=== PATIENT | male | born 1940 | race Caucasian/White ===

== ENCOUNTER 2019-04-22 11:40 | Inpatient (IN) | payer MEDICARE, OTHER ==
[2019-04-22] VITALS (17 sets, daily range): BP systolic 124–148; BP diastolic 68–83
[~2019-04-22] VITALS: Ht 177.8 cm; Wt 84.1 kg
[~2019-04-22 11:40] MED LIST: ALBU6.7H3 IH; ASPI-1265 PO; ATRIN IH; OMEG1CAP PO
[2019-04-22] MEDS: heparin 25,000 UNIT/250ml bag 250 ML IV SCH ×2 (11:53→13:30)
--- NOTE | 2019-04-22 11:54 | NUR ---
EKG DONE, CXR DONE, CUPOLA REPAIRER HAS BEEN NOTIFIED
[2019-04-22] MEDS ORDERED: heparin 10,000 units/1 ML INJ IV ONE (11:55)
[2019-04-22] MEDS ORDERED: heparin, porcine 5000 units/ml vial SQ SCH (11:55)
[2019-04-22] MEDS ORDERED: morphine 4 MG/ML inj SYRINge IV ONE (12:00)
[2019-04-22 12:04] LABS: BASOPHILS # (AUTO) 0.1 X10'3 (0-0.2); BASOPHILS % (AUTO) 1.3 % (0-1); EOSINOPHILS # (AUTO) 0.5 X10'3 (0-0.9); EOSINOPHILS % (AUTO) 4.9 % (0-6); HEMATOCRIT 43.7 % (42.0-52.0); HEMOGLOBIN 15.1 g/dl (14.0-17.9); LYMPHOCYTES # (AUTO) 3.3 X10'3 (1.1-4.8); LYMPHOCYTES % (AUTO) 30.4 % (21-51); MEAN CORPUSCULAR HEMOGLOBIN 31.1 PG (27.0-31.0); MEAN CORPUSCULAR HGB CONC 34.5 g/dL (33.0-36.5); MEAN CORPUSCULAR VOLUME 90.1 FL (78-98); MONOCYTES % (AUTO) 9.2 % (2-12); NEUTROPHILS % (AUTO) 54.2 % (42-75); PLATELET COUNT 247 X10'3 (140-440); RED BLOOD COUNT 4.84 X10'6 (4.70-6.10); RED CELL DISTRIBUTION WIDTH 13.2 % (11.5-14.5)
[2019-04-22] MEDS ORDERED: heparin 10,000 units/1 ML INJ IV PRN (12:05)
[2019-04-22] MEDS ORDERED: iohexol 350 MG/ML 50ML vial IV ONE (12:09)
[2019-04-22] MEDS ORDERED: fentaNYL/PF 50MCG/1 ML 2ML syringe ONE (12:09)
[2019-04-22] MEDS ORDERED: heparin 1,000unit/ml 10ml vial 10 ML ONE (12:09)
[2019-04-22] MEDS ORDERED: LIDOcaine 1% (10mg/ml)w/preservative injection 20ml MDV ONE (12:09)
[2019-04-22] MEDS ORDERED: iohexol 350 MG/1 ML 200ml bottle ONE (12:09)
[2019-04-22] MEDS ORDERED: midazolam 2 mg/2 ml injection ONE (12:09)
[2019-04-22] MEDS ORDERED: nitroGLYCERIN-Tridil 50MG/D5W 250 ML IV ONE (12:09)
--- NOTE | 2019-04-22 12:11 | NUR ---
PT TO AUTOMATIC DEVELOPER VIA CURT WITH BRETT TECH
[2019-04-22] MEDS ORDERED: tirofiban 5mg in NS 100mL 100 ML IV ONE (12:13)
[2019-04-22 12:18] LABS: ALANINE AMINOTRANSFERASE 62 U/L (12-78); ALBUMIN 3.6 G/DL (3.4-5.0); ALBUMIN/GLOBULIN RATIO 0.9 (1.1-1.5); ANION GAP 9 (8-16); ASPARTATE AMINO TRANSFERASE 44 U/L (10-37); BILIRUBIN,TOTAL 0.5 MG/DL (0.1-1.0); BLOOD UREA NITROGEN 16 MG/DL (7-18); BUN/CREATININE RATIO 14.8 (5.4-32.0); CALCIUM 8.9 MG/DL (8.5-10.1); CHLORIDE 105 MMOL/L (99-107); CREATININE 1.08 MG/DL (0.60-1.10); GLUCOSE 151 MG/DL (70-104); POTASSIUM 3.9 MMOL/L (3.5-5.1); SODIUM 138 MMOL/L (135-145); TOTAL CARBON DIOXIDE 23.8 MMOL/L (24-32); TOTAL PROTEIN 7.8 G/DL (6.4-8.2); eGFR 66 ML/MIN
[2019-04-22 12:30] LABS: PARTIAL THROMBOPLASTIN TIME 28 SECONDS (22-32)
--- NOTE | 2019-04-22 12:30 | NUR ---
DR. BENSON TALKING WITH AND DAUGHTER
[2019-04-22 12:42] LABS: ALKALINE PHOSPHATASE 86 IU/L (46-116)
[2019-04-22] MEDS ORDERED: LIDOcaine 2% (20 mg/ml) 5ml cardiac syringe ONE (12:56)
[2019-04-22] MEDS ORDERED: iohexol 350MG/ML 100ml bottle IV ONE (13:03)
[2019-04-22] MEDS: LIDOcaine 2 gm/250ml D5W 250 ML IV SCH ×2 (13:10→13:30)
[2019-04-22] MEDS ORDERED: clopidogrel 300mg tablet ONE (13:21)
[2019-04-22] MEDS: normal saline 1000ml 1,000 ML IV SCH ×2 (13:30→14:15)
[2019-04-22] MEDS ORDERED: acetaminophen 325mg tablet PO PRN (14:20)
[2019-04-22] MEDS: aspirin 81mg tab.chew PO SCH (14:20)
[2019-04-22] MEDS ORDERED: magnesium hydroxide 30ml (MOM) UD suspension PO PRN (14:20)
[2019-04-22] MEDS ORDERED: OXAZEpam 15mg capsule PO PRN (14:20)
[2019-04-22] MEDS ORDERED: nitroGLYCERIN 0.4mg SUBLingual tab SL PRN (14:20)
[2019-04-22] MEDS ORDERED: proCHLORperazine 10 MG/2 ml inj IV PRN (14:20)
[2019-04-22] MEDS ORDERED: HYDROcodone/acetaminophen 10/325mg tab PO PRN (14:20)
[2019-04-22] MEDS ORDERED: cyclobenzaprine 10mg tablet PO PRN (14:20)
[2019-04-22] MEDS ORDERED: morphine 10mg/ml inj. IV PRN (14:25)
[2019-04-22] MEDS ORDERED: morphine 4 MG/ML inj SYRINge IV PRN (14:25)
--- NOTE | 2019-04-22 14:30 | NUR ---
Patient arrived to floor from film laboratory technician and placed on monitor; vital signs stable. Upon physical assessment, oozing noted at groin site draining beneath the legs. Dressing removed and small hematoma noted. Manual pressure applied and hematoma size decreased. Pressure dressing placed. Dr. Medina at bedside and aware; does not have any concerns about oozing at this time. Patient oriented to room with call light in reach.
[2019-04-22] MEDS ORDERED: BUDE10.2 INH (15:29)
[2019-04-22] MEDS ORDERED: BICA50TA7 PO (15:30)
[2019-04-22] MEDS ORDERED: tirofiban 12.5mg in NS 250mL 250 ML IV SCH (15:30)
--- NOTE | 2019-04-22 18:45 | NUR ---
Patient in room CICU 2006. I have received report from BELINDA Mckeon and had the opportunity to ask questions and assume patient care.
--- NOTE | 2019-04-22 18:48 | NUR ---
Problems reprioritized. Patient report given, questions answered & plan of care reviewed with Yvette TREVINO.
[2019-04-22] MEDS ORDERED: clopidogrel 300mg tablet PO SCH (19:00)
[2019-04-22] MEDS ORDERED: clopidogrel 300mg tablet PO ONE (19:00)
[2019-04-22] MEDS: docusate sod 100mg capsule PO SCH (20:52)
[2019-04-22] MEDS: metoprolol tartrate 12.5mg (1/2 tablet) PO SCH (20:52)
[2019-04-22] MEDS ORDERED: ondansetron/PF 4mg/2ml inj IV PRN (22:35)
[2019-04-23] VITALS (21 sets, daily range): BP systolic 99–141; BP diastolic 55–75
[2019-04-23] MEDS: HYDROcodone/acetaminophen 10/325mg tab PO PRN (00:10)
[2019-04-23] MEDS: albuterol 2.5 MG/3 ML nebule NEB SCH ×4 (02:53→19:26)
[2019-04-23 03:19] LABS: BASOPHILS % (AUTO) 0.2 % (0-1); EOSINOPHILS % (AUTO) 0.2 % (0-6); HEMATOCRIT 42.1 % (42.0-52.0); HEMOGLOBIN 14.3 g/dl (14.0-17.9); LYMPHOCYTES # (AUTO) 1.1 X10'3 (1.1-4.8); LYMPHOCYTES % (AUTO) 5.6 % (21-51); MEAN CORPUSCULAR HEMOGLOBIN 30.3 PG (27.0-31.0); MEAN CORPUSCULAR HGB CONC 33.9 g/dL (33.0-36.5); MEAN CORPUSCULAR VOLUME 89.4 FL (78-98); MEAN PLATELET VOLUME 8.6 FL (7.4-10.4); MONOCYTES % (AUTO) 5.3 % (2-12); NEUTROPHILS # (AUTO) 17.3 X10'3 (1.8-7.7); NEUTROPHILS % (AUTO) 88.7 % (42-75); PLATELET COUNT 250 X10'3 (140-440); RED BLOOD COUNT 4.71 X10'6 (4.70-6.10); RED CELL DISTRIBUTION WIDTH 13.2 % (11.5-14.5); WHITE BLOOD COUNT 19.5 X10'3 (4.5-11.0)
[2019-04-23 03:33] LABS: ALANINE AMINOTRANSFERASE 71 U/L (12-78); ALBUMIN 3.4 G/DL (3.4-5.0); ALBUMIN/GLOBULIN RATIO 0.8 (1.1-1.5); ALKALINE PHOSPHATASE 84 IU/L (46-116); ANION GAP 8 (8-16); ASPARTATE AMINO TRANSFERASE 77 U/L (10-37); BILIRUBIN,TOTAL 0.6 MG/DL (0.1-1.0); BLOOD UREA NITROGEN 23 MG/DL (7-18); BUN/CREATININE RATIO 20.4 (5.4-32.0); CALCIUM 8.8 MG/DL (8.5-10.1); CHLORIDE 105 MMOL/L (99-107); CREATININE 1.13 MG/DL (0.60-1.10); GLUCOSE 159 MG/DL (70-104); POTASSIUM 4.5 MMOL/L (3.5-5.1); SODIUM 137 MMOL/L (135-145); TOTAL CARBON DIOXIDE 23.6 MMOL/L (24-32); TOTAL PROTEIN 7.7 G/DL (6.4-8.2); eGFR 63 ML/MIN
--- NOTE | 2019-04-23 06:09 | NUR ---
Problems reprioritized. Patient report given, questions answered & plan of care reviewed with BELINDA Mckeon. Addendum: 04/23/19 at 0619 by Yvette Jones RN Report given to BELINDA Doty
--- NOTE | 2019-04-23 06:15 | NUR ---
Patient in room CICU 2006. I have received report from lpn private duty and had the opportunity to ask questions and assume patient care.
[2019-04-23] MEDS: budesonide 0.5mg/2ml UD nebule IH SCH ×2 (07:53→19:26)
[2019-04-23] MEDS: clopidogrel 75mg tablet PO SCH (07:56)
[2019-04-23] MEDS: docusate sod 100mg capsule PO SCH ×2 (07:56→20:51)
[2019-04-23] MEDS: aspirin 81mg tab.chew PO SCH (07:56)
[2019-04-23] MEDS: metoprolol tartrate 12.5mg (1/2 tablet) PO SCH ×2 (07:57→20:51)
[2019-04-23] MEDS: lisinopril 2.5mg tablet PO SCH (09:26)
[2019-04-23] MEDS: normal saline 1000ml 1,000 ML IV SCH (10:15)
[2019-04-23] MEDS ORDERED: NITR0.4T48 SL (11:03)
--- NOTE | 2019-04-23 18:30 | NUR ---
Patient in room CICU 2006. I have received report from Suha TREVINO and had the opportunity to ask questions and assume patient care.
--- NOTE | 2019-04-23 18:50 | NUR ---
Report given to Courtney TREVINO via Transfer Unit to unit SBAR. Pt Right groin site and pulses assessed, no complications noted. Pt to be transferred to room 3027a via wheelchair with Tele #[address] Pt on Room air, sinus rhythm.
[2019-04-23] MEDS ORDERED: calcium carbonate 500mg chew tablet PO PRN (19:05)
--- NOTE | 2019-04-23 19:34 | NUR ---
Pt now in bed 3027A, moved with his belongings. I introduced him to his Noc RN, Courtney. Upper side rails up and call light within reach. Pt oriented to call light procedure. Verbalized to Courtney TREVINO that pt is confused at times and can be impulsive. A bed alarm or tabs unit should be placed for safety. Pt given Tums for his gas pains.
[2019-04-24] MEDS: albuterol 2.5 MG/3 ML nebule NEB SCH ×4 (01:55→20:24)
[2019-04-24 03:00] VITALS: BP 109/53
[2019-04-24 05:26] LABS: BASOPHILS # (AUTO) 0.1 X10'3 (0-0.2); BASOPHILS % (AUTO) 0.5 % (0-1); EOSINOPHILS # (AUTO) 0.5 X10'3 (0-0.9); EOSINOPHILS % (AUTO) 4.2 % (0-6); HEMATOCRIT 34.8 % (42.0-52.0); LYMPHOCYTES # (AUTO) 2.3 X10'3 (1.1-4.8); LYMPHOCYTES % (AUTO) 17.7 % (21-51); MEAN CORPUSCULAR HEMOGLOBIN 31.1 PG (27.0-31.0); MEAN CORPUSCULAR HGB CONC 34.6 g/dL (33.0-36.5); MEAN CORPUSCULAR VOLUME 89.9 FL (78-98); MEAN PLATELET VOLUME 8.8 FL (7.4-10.4); MONOCYTES # (AUTO) 0.9 X10'3 (0-0.9); MONOCYTES % (AUTO) 6.9 % (2-12); NEUTROPHILS # (AUTO) 9.1 X10'3 (1.8-7.7); NEUTROPHILS % (AUTO) 70.7 % (42-75); PLATELET COUNT 176 X10'3 (140-440); RED BLOOD COUNT 3.87 X10'6 (4.70-6.10); RED CELL DISTRIBUTION WIDTH 13.2 % (11.5-14.5); WHITE BLOOD COUNT 12.8 X10'3 (4.5-11.0)
[2019-04-24 06:02] LABS: ANION GAP 8 (8-16); BLOOD UREA NITROGEN 24 MG/DL (7-18); BUN/CREATININE RATIO 23.3 (5.4-32.0); CALCIUM 8.6 MG/DL (8.5-10.1); CHLORIDE 106 MMOL/L (99-107); CREATININE 1.03 MG/DL (0.60-1.10); GLUCOSE 97 MG/DL (70-104); MAGNESIUM 1.8 MG/DL (1.5-2.4); SODIUM 139 MMOL/L (135-145); TOTAL CARBON DIOXIDE 25.1 MMOL/L (24-32); eGFR 70 ML/MIN
--- NOTE | 2019-04-24 06:05 | NUR ---
Patient in room PCU 3027. I have received report from Courtney and had the opportunity to ask questions and assume patient care.
[2019-04-24 06:30] VITALS: BP 120/83
[2019-04-24] MEDS: aspirin 81mg tab.chew PO SCH (07:42)
[2019-04-24] MEDS: clopidogrel 75mg tablet PO SCH (07:42)
[2019-04-24] MEDS: metoprolol tartrate 12.5mg (1/2 tablet) PO SCH ×2 (07:42→20:24)
[2019-04-24] MEDS: lisinopril 2.5mg tablet PO SCH (07:42)
[2019-04-24] MEDS: docusate sod 100mg capsule PO SCH ×2 (07:43→20:00)
[2019-04-24] MEDS: budesonide 0.5mg/2ml UD nebule IH SCH ×2 (08:43→20:24)
[2019-04-24 11:00] VITALS: BP 107/57
--- NOTE | 2019-04-24 13:18 | NUR ---
Notified Dr Sahu that pt does not have a code status. He stated he would take care of this.
--- NOTE | 2019-04-24 15:15 | NUR ---
Pt has been up ambulating around unit all day today. Right groin site CDI, no bleeding, no hematoma.
[2019-04-24 15:30] VITALS: BP 105/55
[2019-04-24 18:00] VITALS: BP 106/66
--- NOTE | 2019-04-24 18:21 | NUR ---
Problems reprioritized. Patient report given, questions answered & plan of care reviewed with nancy.
--- NOTE | 2019-04-24 18:37 | NUR ---
Patient in room PCU 3027. I have received report from Eva TREVINO and had the opportunity to ask questions and assume patient care.
[2019-04-24] MEDS: HYDROcodone/acetaminophen 10/325mg tab PO PRN (20:25)
[2019-04-24 22:00] VITALS: BP 108/60
[2019-04-25 02:00] VITALS: BP 116/65
[2019-04-25] MEDS: HYDROcodone/acetaminophen 10/325mg tab PO PRN (02:44)
[2019-04-25] MEDS: albuterol 2.5 MG/3 ML nebule NEB SCH ×2 (03:11→08:43)
[2019-04-25 05:25] LABS: BASOPHILS # (AUTO) 0.1 X10'3 (0-0.2); BASOPHILS % (AUTO) 0.6 % (0-1); EOSINOPHILS # (AUTO) 0.6 X10'3 (0-0.9); EOSINOPHILS % (AUTO) 5.7 % (0-6); HEMATOCRIT 33.8 % (42.0-52.0); HEMOGLOBIN 11.7 g/dl (14.0-17.9); LYMPHOCYTES % (AUTO) 18.2 % (21-51); MEAN CORPUSCULAR HEMOGLOBIN 31.1 PG (27.0-31.0); MEAN CORPUSCULAR HGB CONC 34.6 g/dL (33.0-36.5); MEAN PLATELET VOLUME 9.3 FL (7.4-10.4); MONOCYTES # (AUTO) 1.1 X10'3 (0-0.9); MONOCYTES % (AUTO) 9.8 % (2-12); NEUTROPHILS # (AUTO) 7.2 X10'3 (1.8-7.7); NEUTROPHILS % (AUTO) 65.7 % (42-75); PLATELET COUNT 171 X10'3 (140-440); RED BLOOD COUNT 3.76 X10'6 (4.70-6.10); RED CELL DISTRIBUTION WIDTH 13.3 % (11.5-14.5); WHITE BLOOD COUNT 10.9 X10'3 (4.5-11.0)
[2019-04-25 05:55] LABS: ALBUMIN 3.1 G/DL (3.4-5.0); ANION GAP 6 (8-16); BLOOD UREA NITROGEN 16 MG/DL (7-18); BUN/CREATININE RATIO 17.2 (5.4-32.0); CALCIUM 8.5 MG/DL (8.5-10.1); CHLORIDE 106 MMOL/L (99-107); CREATININE 0.93 MG/DL (0.60-1.10); GLUCOSE 97 MG/DL (70-104); MAGNESIUM 1.9 MG/DL (1.5-2.4); POTASSIUM 3.5 MMOL/L (3.5-5.1); SODIUM 139 MMOL/L (135-145); eGFR 79 ML/MIN
[2019-04-25 06:00] VITALS: BP 106/58
--- NOTE | 2019-04-25 06:52 | NUR ---
Patient in room PCU 3027. I have received report from BELINDA Espinoza and had the opportunity to ask questions and assume patient care. Pt is awake and alert. Will continue to monitor.
--- NOTE | 2019-04-25 06:52 | NUR ---
Problems reprioritized. Patient report given, questions answered & plan of care reviewed with Brandie RN.
[2019-04-25] MEDS: docusate sod 100mg capsule PO SCH (08:00)
[2019-04-25] MEDS: metoprolol tartrate 12.5mg (1/2 tablet) PO SCH (08:33)
[2019-04-25 08:34] VITALS: BP_SYST 106
[2019-04-25] MEDS: clopidogrel 75mg tablet PO SCH (08:34)
[2019-04-25] MEDS: aspirin 81mg tab.chew PO SCH (08:34)
[2019-04-25] MEDS: lisinopril 2.5mg tablet PO SCH (08:34)
[2019-04-25] MEDS: budesonide 0.5mg/2ml UD nebule IH SCH (08:43)
[2019-04-25] MEDS ORDERED: LISI2.5T2 PO (09:43)
[2019-04-25] MEDS ORDERED: CLOP75TA35 PO (09:43)
[2019-04-25] MEDS ORDERED: METO25TA6 PO (09:43)
--- NOTE | 2019-04-25 11:02 | NUR ---
Pt discharged. IV d/c'd, tele removed, all belongings sent home with pt. Pt walked down with son. Left in private vehicle to home.
== END 2019-04-25 11:02 | disposition home or self-care (01) | DRG 246 ==
LOC: ER 11:41 → CICU 2S 13:30 → PCU 3S 04-23 19:15
PROVIDERS: ADMIT Internal Medicine Cardiovascular Disease; ATTEND Family Medicine
PROC: 4A023N7 Measurement of Cardiac Sampling and Pressure, Left Heart, Percutaneous Approach (ICD-10-PCS; principal; 2019-04-22)
PROC: 027035Z Dilation of Coronary Artery, One Artery with Two Drug-eluting Intraluminal Devices, Percutaneous Approach (ICD-10-PCS; 2019-04-22)
PROC: B2111ZZ Fluoroscopy of Multiple Coronary Arteries using Low Osmolar Contrast (ICD-10-PCS; 2019-04-22)
PROC: B2151ZZ Fluoroscopy of Left Heart using Low Osmolar Contrast (ICD-10-PCS; 2019-04-22)
PROC: B2131ZZ Fluoroscopy of Multiple Coronary Artery Bypass Grafts using Low Osmolar Contrast (ICD-10-PCS; 2019-04-22)
PROC: B41F1ZZ Fluoroscopy of Right Lower Extremity Arteries using Low Osmolar Contrast (ICD-10-PCS; 2019-04-22)
DX: I21.09 ST elevation (STEMI) myocardial infarction involving other coronary artery of anterior wall (principal); I49.01 Ventricular fibrillation; F17.210 Nicotine dependence, cigarettes, uncomplicated; I10 Essential (primary) hypertension; I16.0 Hypertensive urgency; M19.90 Unspecified osteoarthritis, unspecified site; I25.10 Atherosclerotic heart disease of native coronary artery without angina pectoris; J44.9 Chronic obstructive pulmonary disease, unspecified; Z82.41 Family history of sudden cardiac death; Z85.46 Personal history of malignant neoplasm of prostate; Z88.8 Allergy status to other drugs, medicaments and biological substances; I25.2 Old myocardial infarction; Z90.79 Acquired absence of other genital organ(s); Z95.1 Presence of aortocoronary bypass graft; Z80.9 Family history of malignant neoplasm, unspecified; Z81.1 Family history of alcohol abuse and dependence; Z79.899 Other long term (current) drug therapy; Z79.82 Long term (current) use of aspirin; Z71.6 Tobacco abuse counseling
CPT/HCPCS: 93459; 96374; 99291; C9606; 36415; 71045; 80048; 80053; 83735; 84484; 85025; 85610; 85730; 87081; 93005; 94640; 94760; 99152; 99153; A6258; C1725; C1769; C1874; G0378; J0780; J1644; J2001; J2250; J2270; J3010; J3246; J3490; J7040; J7626; Q9967

== ENCOUNTER 2021-06-07 08:17 | Day surgery (SDC) | payer MEDICARE, OTHER ==
[2021-06-05 12:05] LABS: BASOPHILS # (AUTO) 0.1 X10'3 (0-0.2); BASOPHILS % (AUTO) 1.1 % (0-1); EOSINOPHILS # (AUTO) 0.4 X10'3 (0-0.9); EOSINOPHILS % (AUTO) 4.9 % (0-6); HEMATOCRIT 40.3 % (42.0-52.0); HEMOGLOBIN 13.9 g/dl (14.0-17.9); LYMPHOCYTES # (AUTO) 1.4 X10'3 (1.1-4.8); LYMPHOCYTES % (AUTO) 17.6 % (21-51); MEAN CORPUSCULAR HEMOGLOBIN 32.5 PG (27.0-31.0); MEAN CORPUSCULAR HGB CONC 34.6 g/dL (33.0-36.5); MEAN CORPUSCULAR VOLUME 93.9 FL (78-98); MEAN PLATELET VOLUME 9.3 FL (7.4-10.4); MONOCYTES # (AUTO) 0.8 X10'3 (0-0.9); MONOCYTES % (AUTO) 10.3 % (2-12); NEUTROPHILS # (AUTO) 5.4 X10'3 (1.8-7.7); NEUTROPHILS % (AUTO) 66.1 % (42-75); PLATELET COUNT 236 X10'3 (140-440); RED BLOOD COUNT 4.29 X10'6 (4.70-6.10); RED CELL DISTRIBUTION WIDTH 14.3 % (11.5-14.5); WHITE BLOOD COUNT 8.1 X10'3 (4.5-11.0)
[2021-06-05 12:18] LABS: PARTIAL THROMBOPLASTIN TIME 27 SECONDS (22-32)
[2021-06-05 12:21] LABS: ALANINE AMINOTRANSFERASE 21 U/L (12-78); ALBUMIN 3.5 G/DL (3.4-5.0); ALBUMIN/GLOBULIN RATIO 0.9 (1.1-1.5); ALKALINE PHOSPHATASE 110 IU/L (46-116); ANION GAP 11 (8-16); ASPARTATE AMINO TRANSFERASE 18 U/L (10-37); BILIRUBIN,TOTAL 0.6 MG/DL (0.1-1.0); BLOOD UREA NITROGEN 12 MG/DL (7-18); BUN/CREATININE RATIO 10.3 (5.4-32.0); CHLORIDE 103 MMOL/L (99-107); CREATININE 1.17 MG/DL (0.60-1.10); GLUCOSE 86 MG/DL (70-104); SODIUM 140 MMOL/L (135-145); TOTAL CARBON DIOXIDE 26.5 MMOL/L (24-32); TOTAL PROTEIN 7.6 G/DL (6.4-8.2); eGFR 60 ML/MIN
[~2021-06-07] VITALS: Ht 175.3 cm; Wt 70.5 kg
[2021-06-07] VITALS (12 sets, daily range): BP systolic 123–170; BP diastolic 64–89
[~2021-06-07 08:17] MED LIST changes: -ALBU6.7H3 IH; -ATRIN IH; +BICA50TA7 PO; +BUDE10.2 INH; +CLOP75TA34 PO; +LISI2.5T14 PO; +LOP25T PO; +NITR0.4T48 SL; -OMEG1CAP PO
[2021-06-07] MEDS ORDERED: diphenhydrAMINE 25mg capsule PO PRN (08:40)
[2021-06-07] MEDS ORDERED: normal saline 1,000 ML IV SCH (08:40)
[2021-06-07] MEDS ORDERED: LORazepam 0.5 MG tablet PO PRN (08:40)
[2021-06-07] MEDS ORDERED: nitroGLYCERIN 0.4mg SUBLingual tab SL PRN (08:40)
[2021-06-07] MEDS ORDERED: CLOP75TA15 PO (09:23)
[2021-06-07] MEDS ORDERED: FLUT1BLS4 IH (09:23)
[2021-06-07] MEDS ORDERED: CHOL500050 PO (09:23)
[2021-06-07] MEDS ORDERED: METO-395 PO (09:23)
[2021-06-07] MEDS ORDERED: LISI20TA28 PO (09:23)
[2021-06-07] MEDS ORDERED: NITR0.4T51 SL (09:23)
[2021-06-07] MEDS ORDERED: ENZA40CA PO (09:23)
[2021-06-07] MEDS ORDERED: midazolam 1 mg/ML 2ml injection ONE (10:09)
[2021-06-07] MEDS ORDERED: LIDOcaine 1% (10mg/ml)w/preservative injection 20ml MDV ONE (10:10)
[2021-06-07] MEDS ORDERED: iohexol 350 MG/ML 50ML vial IV ONE ×2 (10:10→10:43)
[2021-06-07] MEDS ORDERED: fentaNYL/PF 50MCG/1 ML 2ML syringe ONE (10:10)
[2021-06-07] MEDS ORDERED: iohexol 350MG/ML 100ml bottle IV ONE ×2 (10:10→10:57)
[2021-06-07] MEDS ORDERED: nitroGLYCERIN-Tridil 50MG/D5W 250 ML IV ONE (11:16)
[2021-06-07] MEDS ORDERED: hydrALAZINE 20mg/ml inj. IV ONE (11:17)
[2021-06-07] MEDS ORDERED: proCHLORperazine 10 MG/2 ml inj IV PRN (12:15)
[2021-06-07] MEDS ORDERED: normal saline 1000ml 1,000 ML IV SCH (12:15)
[2021-06-07] MEDS ORDERED: HYDROcodone/acetaminophen 10/325mg tab PO PRN (12:15)
[2021-06-07] MEDS ORDERED: ondansetron/PF 4mg/2ml inj IV PRN (12:15)
[2021-06-07] MEDS ORDERED: OXAZEpam 15mg capsule PO PRN (12:15)
[2021-06-07] MEDS ORDERED: HYDROcodone/acetaminophen 5mg/325mg tablet PO PRN (12:15)
[2021-06-08 15:02] LABS: PSA, FREE <0.01 ng/mL
== END 2021-06-07 18:05 | disposition home or self-care (01) ==
LOC: SSTAY O 08:17
PROVIDERS: ATTEND Internal Medicine Cardiovascular Disease
DX: R94.39 Abnormal result of other cardiovascular function study (principal); I25.719 Atherosclerosis of autologous vein coronary artery bypass graft(s) with unspecified angina pectoris; E11.9 Type 2 diabetes mellitus without complications; I10 Essential (primary) hypertension; J44.9 Chronic obstructive pulmonary disease, unspecified; M19.90 Unspecified osteoarthritis, unspecified site; F17.210 Nicotine dependence, cigarettes, uncomplicated; K21.9 Gastro-esophageal reflux disease without esophagitis; E78.5 Hyperlipidemia, unspecified; I25.2 Old myocardial infarction; Z98.890 Other specified postprocedural states; Z79.01 Long term (current) use of anticoagulants; Z79.899 Other long term (current) drug therapy; Z95.1 Presence of aortocoronary bypass graft; Z88.8 Allergy status to other drugs, medicaments and biological substances; Z85.46 Personal history of malignant neoplasm of prostate
CPT/HCPCS: 36415; 71046; 80053; 84153; 84154; 85025; 85610; 85730; 93005; 93459; 99152; 99153; C1760; C1769; J0360; J1644; J2001; J2250; J3010; J7030; Q0163; Q9967; 75625; A4620; A6258; J3490

== ENCOUNTER 2021-07-11 07:31 | Inpatient (IN) | payer MEDICARE, OTHER ==
[2021-07-05 14:38] LABS: BASOPHILS # (AUTO) 0.1 X10'3 (0-0.2); EOSINOPHILS # (AUTO) 0.7 X10'3 (0-0.9); EOSINOPHILS % (AUTO) 9.2 % (0-6); LYMPHOCYTES # (AUTO) 1.6 X10'3 (1.1-4.8); LYMPHOCYTES % (AUTO) 19.8 % (21-51); MEAN CORPUSCULAR HEMOGLOBIN 32.1 PG (27.0-31.0); MEAN CORPUSCULAR HGB CONC 34.9 g/dL (33.0-36.5); MEAN PLATELET VOLUME 8.8 FL (7.4-10.4); MONOCYTES # (AUTO) 0.7 X10'3 (0-0.9); MONOCYTES % (AUTO) 8.4 % (2-12); NEUTROPHILS # (AUTO) 4.8 X10'3 (1.8-7.7); NEUTROPHILS % (AUTO) 61.6 % (42-75); PRE OP PLATELET COUNT 244 X10'3 (140-440); RED BLOOD COUNT 4.35 X10'6 (4.70-6.10); RED CELL DISTRIBUTION WIDTH 13.6 % (11.5-14.5)
[2021-07-05 14:50] LABS: CLARITY,URINE CLEAR (Clear); COLOR,URINE YELLOW (Yellow); GLUCOSE, URINE NEGATIVE (Neg); KETONES,URINE NEGATIVE (Neg); LEUKOCYTE ESTERASE ,URINE NEGATIVE (Neg); NITRITES, URINE NEGATIVE (Neg); OCCULT BLOOD,URINE NEGATIVE (Neg); PROTEIN,URINE NEGATIVE (Neg); UA COLLECTION TYPE CLN CATCH MIDSTREAM; UROBILINOGEN,URINE 0.2 E.U/dL (0.2-1.0)
[2021-07-05 14:55] LABS: ALBUMIN 3.5 G/DL (3.4-5.0); ALBUMIN/GLOBULIN RATIO 0.8 (1.1-1.5); ALKALINE PHOSPHATASE 120 IU/L (46-116); BLOOD UREA NITROGEN 10 MG/DL (7-18); BUN/CREATININE RATIO 8.9 (5.4-32.0); CALCIUM 8.9 MG/DL (8.5-10.1); CHLORIDE 101 MMOL/L (99-107); CREATININE 1.12 MG/DL (0.60-1.10); HEMOGLOBIN A1C 5.1 % (4.5-6.2); PRE OP ANION GAP 11 (8-16); PRE OP AST 53 U/L (10-37); PRE OP BILIRUB, TOTAL 0.4 MG/DL (0.0-1.0); PRE OP GLUCOSE 97 MG/DL (70-104); PRE OP POTASSIUM 3.9 MMOL/L (3.4-5.1); PRE OP SODIUM 137 MMOL/L (135-145); TOTAL CARBON DIOXIDE 25.4 MMOL/L (24-32); TOTAL PROTEIN 7.9 G/DL (6.4-8.2); eGFR 63 ML/MIN
[2021-07-05 14:58] LABS: PRE OP ALT 84 U/L (30-65)
[2021-07-05 15:01] LABS: PRE OP PROTIME 10.3 SECONDS (9.0-12.0)
[2021-07-05 16:11] LABS: ABG OXYGEN SATURATION 95.9 % (94-97); ABG PCO2 (T) 31.9 mmHg (35.0-48.0); ABG PO2 (T) 77.7 mmHg (75.0-100.0); ALLEN'S TEST POSITIVE; FCOHb 4.3 % (0.0-3.9); FMetHb 0.3 % (0.0-1.5); FO2Hb 91.5 % (94-97); TOTAL HEMOGLOBIN 13.6 G/dl (14.0-18.0)
[2021-07-11] VITALS (15 sets, daily range): BP systolic 102–136; BP diastolic 47–71
[~2021-07-11] VITALS: Ht 175.3 cm; Wt 73.2 kg
[~2021-07-11 07:31] MED LIST changes: -ASPI-1265 PO; -BICA50TA7 PO; -BUDE10.2 INH; +CLOP75TA15 PO; -CLOP75TA34 PO; +DOCUMENT DATE & TIME OF BETA-BLOCKER PO ONE; +ENZA40CA PO; +FLUT1BLS4 IH; -LISI2.5T14 PO; +LISI20TA28 PO; -LOP25T PO; +LORazepam 2 mg/ml vial IV ONE; +METO-395 PO; -NITR0.4T48 SL; +NITR0.4T51 SL; +ceFAZolin 2gm in dextrose, iso 50 ML IV ONE; +famotidine 20mg tablet PO ONE; +gabapentin 400mg capsule PO ONE; +ipratropium/albuterol 3ml nebule IH ONE; +ringers solution, lacted 1,000 ML IV SCH; +vancomycin 1,500 MG in NS 300ml IV soln IV ONE
[2021-07-11] MEDS ORDERED: ceFAZolin 1000mg inj ONE (08:39)
[2021-07-11] MEDS ORDERED: epiNEPHrine 1 mg/ml inj ONE (08:40)
[2021-07-11] MEDS ORDERED: Insulin Reg/NS 100units/100mL 100 ML IV SCH ×2 (09:10→14:20)
[2021-07-11] MEDS ORDERED: midazolam 1 mg/ML 2ml injection ONE (10:14)
[2021-07-11] MEDS ORDERED: SUFENTANIL CITRATE 50 MCG/ML 2ml ampule IV ONE (10:14)
[2021-07-11] MEDS ORDERED: rocuronium 10mg/ml inj IV ONE (10:21)
[2021-07-11] MEDS ORDERED: propofol inj 20 ML IV ONE (10:21)
[2021-07-11 10:57] LABS: ABG BASE EXCESS -1.1 mmol/L (-2.0-2.0); ABG HCO3 24.2 mmol/L (22.0-26.0); ABG OXYGEN SATURATION 99.7 % (94-97); ABG PO2 325.6 mmHg (75.0-100.0); CL (ABG) 106 mmol/L (98-110); FCOHb 2.6 % (0.0-3.9); FMetHb 0.3 % (0.0-1.5); FO2Hb 96.8 % (94-97); GLUCOSE (ABG) 90 mg/dl (70-105); IONIZED CA (ABG) 1.16 mmol/L (1.10-1.43); K (ABG) 3.9 mmol/L (3.5-5.0); TOTAL HEMOGLOBIN 11.9 G/dl (14.0-18.0)
[2021-07-11 12:01] LABS: ACT @ 1.70 U 350 SEC (193-297); ACT @ 2.84 U 467 SEC (260-420); BASELINE ACT 152 SEC (101-148); PATIENT WEIGHT 73.0k KG
[2021-07-11 12:14] LABS: ABG HCO3 22.8 mmol/L (22.0-26.0); ABG OXYGEN SATURATION 99.6 % (94-97); ABG PCO2 39.2 mmHg (35.0-48.0); ABG PO2 368.7 mmHg (75.0-100.0); CL (ABG) 103 mmol/L (98-110); FCOHb 2.4 % (0.0-3.9); FMetHb 0.3 % (0.0-1.5); FO2Hb 96.9 % (94-97); GLUCOSE (ABG) 114 mg/dl (70-105); IONIZED CA (ABG) 1.02 mmol/L (1.10-1.43); K (ABG) 5.6 mmol/L (3.5-5.0)
[2021-07-11 13:56] LABS: ACTIVATED CLOTTING TIME 130 SEC (101-148)
[2021-07-11] MEDS ORDERED: sodium phosphate inj. 30 MMOL in dextrose 5%-water 250 ML IV PRN (14:20)
[2021-07-11] MEDS ORDERED: nitroGLYCERIN-Tridil 50MG/D5W 250 ML IV SCH (14:20)
[2021-07-11] MEDS ORDERED: metoclopramide 5 mg/ml inj IV PRN (14:20)
[2021-07-11] MEDS ORDERED: ondansetron/PF 4mg/2ml inj IV PRN (14:20)
[2021-07-11] MEDS ORDERED: morphine 4 MG/ML inj SYRINge IV PRN ×2 (14:20)
[2021-07-11] MEDS ORDERED: Neutra Phos packet PO PRN (14:20)
[2021-07-11] MEDS ORDERED: potassium CL 10mEq/100ml bag 100 ML IV PRN (14:20)
[2021-07-11] MEDS ORDERED: potassium Cl 20 mEq SR tablet PO PRN (14:20)
[2021-07-11] MEDS ORDERED: potassium Cl 40MEQ/1/2NS 520ml 520 ML IV PRN (14:20)
[2021-07-11] MEDS ORDERED: bisacodyl 10mg suppository rectal RC PRN (14:20)
[2021-07-11] MEDS ORDERED: dextrose 50%-water 50ml dispensing syringe IV PRN (14:20)
[2021-07-11] MEDS ORDERED: sodium phosphate inj. 15 MMOL in dextrose 5%-water 250 ML IV PRN (14:20)
[2021-07-11] MEDS ORDERED: potassium Cl 20mEq/100mL bag 100 ML IV PRN (14:20)
[2021-07-11] MEDS ORDERED: magnesium citrate 296ml oral solution PO PRN (14:20)
[2021-07-11] MEDS ORDERED: magnesium 4gm in 100ml NS 100 ML IV PRN (14:20)
[2021-07-11] MEDS ORDERED: HYDROcodone/acetaminophen 10/325mg tab PO PRN (14:20)
[2021-07-11] MEDS ORDERED: mineral oil 133ml enema RC PRN (14:20)
[2021-07-11] MEDS ORDERED: insulin glargine (Lantus) pen - multi-dose SQ PRN (14:20)
[2021-07-11] MEDS ORDERED: niCARDipine-NS 40mg/200ml IVPB 200 ML IV PRN (14:20)
[2021-07-11] MEDS ORDERED: pantoprazole 40 MG vial IV ONE (14:20)
[2021-07-11] MEDS ORDERED: potassium Cl 40MEQ/250ML bag 250 ML IV PRN (14:20)
[2021-07-11] MEDS ORDERED: magnesium hydroxide 30ml (MOM) UD suspension PO PRN (14:20)
[2021-07-11] MEDS ORDERED: NORepinephrine 8mg/ 250ml NS 250 ML IV PRN (14:20)
[2021-07-11] MEDS: nitroGLYCERIN-Tridil 50MG/D5W 250 ML IV SCH ×2 (14:57→20:03)
[2021-07-11 15:02] LABS: ABG BASE EXCESS -6.4 mmol/L (-2.0-2.0); ABG HCO3 19.4 mmol/L (22.0-26.0); ABG OXYGEN SATURATION 98.9 % (94-97); ABG PO2 (T) 243.9 mmHg (75.0-100.0); FCOHb 0.5 % (0.0-3.9); FMetHb 0.5 % (0.0-1.5); FO2Hb 97.9 % (94-97); PATIENT TEMPERATURE 35.5; PEEP 5 cm H2O; RESPIRATORY RATE 14 b/min; TIDAL VOLUME 500 mL
[2021-07-11 15:10] LABS: BASOPHILS # (AUTO) 0.1 X10'3 (0-0.2); BASOPHILS % (AUTO) 0.3 % (0-1); EOSINOPHILS # (AUTO) 0.3 X10'3 (0-0.9); EOSINOPHILS % (AUTO) 1.4 % (0-6); HEMATOCRIT 26.9 % (42.0-52.0); HEMOGLOBIN 9.2 g/dl (14.0-17.9); LYMPHOCYTES # (AUTO) 1.7 X10'3 (1.1-4.8); LYMPHOCYTES % (AUTO) 7.4 % (21-51); MEAN CORPUSCULAR HEMOGLOBIN 32.1 PG (27.0-31.0); MEAN CORPUSCULAR HGB CONC 34.2 g/dL (33.0-36.5); MEAN CORPUSCULAR VOLUME 93.8 FL (78-98); MEAN PLATELET VOLUME 8.5 FL (7.4-10.4); MONOCYTES # (AUTO) 1.1 X10'3 (0-0.9); MONOCYTES % (AUTO) 4.9 % (2-12); NEUTROPHILS # (AUTO) 19.6 X10'3 (1.8-7.7); PLATELET COUNT 186 X10'3 (140-440); RED BLOOD COUNT 2.86 X10'6 (4.70-6.10); RED CELL DISTRIBUTION WIDTH 13.3 % (11.5-14.5); WHITE BLOOD COUNT 22.8 X10'3 (4.5-11.0)
[2021-07-11] MEDS: albumin (Human) 5% 250ml 250 ML IV PRN ×2 (15:23→16:45)
[2021-07-11] MEDS ORDERED: METO25TA6 PO (15:24)
[2021-07-11 15:25] LABS: ALANINE AMINOTRANSFERASE 28 U/L (12-78); ALBUMIN 3.3 G/DL (3.4-5.0); ALBUMIN/GLOBULIN RATIO 1.7 (1.1-1.5); ALKALINE PHOSPHATASE 45 IU/L (46-116); ANION GAP 11 (8-16); ASPARTATE AMINO TRANSFERASE 31 U/L (10-37); BILIRUBIN,TOTAL 0.6 MG/DL (0.1-1.0); BLOOD UREA NITROGEN 15 MG/DL (7-18); CHLORIDE 106 MMOL/L (99-107); CREATININE 0.94 MG/DL (0.60-1.10); GLUCOSE 201 MG/DL (70-104); MAGNESIUM 3.1 MG/DL (1.5-2.4); SODIUM 140 MMOL/L (135-145); TOTAL CARBON DIOXIDE 23.3 MMOL/L (24-32); TOTAL PROTEIN 5.3 G/DL (6.4-8.2); eGFR 77 ML/MIN
[2021-07-11 15:27] LABS: POTASSIUM 4.5 MMOL/L (3.5-5.1)
[2021-07-11 15:30] LABS: ABG BASE EXCESS VENOUS 0.5 mmol/L (-2.0 - 2.0); ABG HCO3 VENOUS 24.9 mmol/L (21.0-28.0); ABG PO2 VENOUS 44.7 mmHg (25.0-35.0); CL (ABG) 103 mmol/L (98-110); FCOHb VENOUS 2.9 %; FHHb VENOUS 16.2 %; FMetHb VENOUS 0.3 % (0.0 - 0.5); FO2Hb VENOUS 80.6 %; GLUCOSE (ABG) 146 mg/dl (70-105); IONIZED CA (ABG) 0.96 mmol/L (1.10-1.43); K (ABG) 5.6 mmol/L (3.5-5.0); TOTAL HEMOGLOBIN 7.9 G/dl (14.0-18.0)
[2021-07-11 15:30] LABS: ABG BASE EXCESS 1.4 mmol/L (-2.0-2.0); ABG HCO3 24.3 mmol/L (22.0-26.0); ABG OXYGEN SATURATION 99.7 % (94-97); ABG PCO2 30.5 mmHg (35.0-48.0); ABG PO2 496.3 mmHg (75.0-100.0); CL (ABG) 100 mmol/L (98-110); FCOHb 2.8 % (0.0-3.9); FMetHb 0.3 % (0.0-1.5); FO2Hb 96.6 % (94-97); GLUCOSE (ABG) 144 mg/dl (70-105); IONIZED CA (ABG) 1.47 mmol/L (1.10-1.43); K (ABG) 5.2 mmol/L (3.5-5.0)
[2021-07-11 15:31] LABS: ABG BASE EXCESS VENOUS -2.9 mmol/L (-2.0 - 2.0); ABG HCO3 VENOUS 22.8 mmol/L (21.0-28.0); ABG PCO2 VENOUS 44.2 mmHg (41.0-54.0); ABG PO2 VENOUS 42.2 mmHg (25.0-35.0); CL (ABG) 107 mmol/L (98-110); FCOHb VENOUS 2.6 %; FHHb VENOUS 24.8 %; FMetHb VENOUS 0.1 % (0.0 - 0.5); FO2Hb VENOUS 72.5 %; GLUCOSE (ABG) 162 mg/dl (70-105); K (ABG) 4.9 mmol/L (3.5-5.0); TOTAL HEMOGLOBIN 6.9 G/dl (14.0-18.0)
[2021-07-11 15:33] LABS: PARTIAL THROMBOPLASTIN TIME 28 SECONDS (22-32)
[2021-07-11] MEDS: ceFAZolin/D5W- 1GM premix 50 ML IV SCH (16:20)
[2021-07-11 16:38] LABS: TOTAL HEMOGLOBIN 6.6 G/dl (14.0-18.0)
[2021-07-11 16:39] LABS: IONIZED CA (ABG) 2.57 mmol/L (1.10-1.43)
[2021-07-11 18:19] LABS: HEMATOCRIT 22.4 % (42.0-52.0); HEMOGLOBIN 7.7 g/dl (14.0-17.9); MEAN CORPUSCULAR HEMOGLOBIN 31.9 PG (27.0-31.0); MEAN CORPUSCULAR HGB CONC 34.2 g/dL (33.0-36.5); MEAN CORPUSCULAR VOLUME 93.1 FL (78-98); MEAN PLATELET VOLUME 8.4 FL (7.4-10.4); PLATELET COUNT 154 X10'3 (140-440); RED CELL DISTRIBUTION WIDTH 13.2 % (11.5-14.5)
--- NOTE | 2021-07-11 19:32 | NUR ---
I have received report and assumed care of pt, Pt resting in bed rise and fall of chest cavity equile and symmetrical, Levophed drip in place to keep MAP greater then 65, insulin drip in place for glucose control, spoke to Dr. Ramirez regarding H/H of 7.7/22.4...reviwed chest tube out put and pt is on Levophed, no new orders at this time. Pt does open his eyes and nodes head to yes no questions
[2021-07-11] MEDS: vancomycin/NS 1 GM ADD-VANTAGE 250 ML IV SCH (20:35)
[2021-07-11] MEDS: mupirocin 2% nasal ointment 1gm UD NS SCH (20:35)
[2021-07-11] MEDS: gabapentin 300mg capsule PO SCH (20:35)
[2021-07-11] MEDS: sennosides/docusate sodium tablet PO SCH (20:35)
--- NOTE | 2021-07-11 23:38 | NUR ---
2100 pt placed back on a rate on ventilator due to apnea
[2021-07-12] VITALS (27 sets, daily range): BP systolic 93–137; BP diastolic 44–67
[2021-07-12] MEDS: ceFAZolin/D5W- 1GM premix 50 ML IV SCH ×3 (00:26→16:00)
--- NOTE | 2021-07-12 00:31 | NUR ---
weaning Levophed as tolerated, wean ventilator as tolerated
[2021-07-12 00:45] LABS: BASOPHILS % (AUTO) 0 % (0-1); EOSINOPHILS % (AUTO) 0 % (0-6); HEMOGLOBIN 7.5 g/dl (14.0-17.9); LYMPHOCYTES # (AUTO) 0.5 X10'3 (1.1-4.8); MEAN CORPUSCULAR HEMOGLOBIN 31.7 PG (27.0-31.0); MEAN CORPUSCULAR HGB CONC 34.2 g/dL (33.0-36.5); MEAN CORPUSCULAR VOLUME 92.8 FL (78-98); MEAN PLATELET VOLUME 8.7 FL (7.4-10.4); MONOCYTES # (AUTO) 0.5 X10'3 (0-0.9); MONOCYTES % (AUTO) 3.1 % (2-12); NEUTROPHILS # (AUTO) 15.3 X10'3 (1.8-7.7); NEUTROPHILS % (AUTO) 93.9 % (42-75); PLATELET COUNT 157 X10'3 (140-440); RED BLOOD COUNT 2.35 X10'6 (4.70-6.10); RED CELL DISTRIBUTION WIDTH 13.2 % (11.5-14.5); WHITE BLOOD COUNT 16.3 X10'3 (4.5-11.0)
[2021-07-12 00:48] LABS: HEMATOCRIT 21.8 % (42.0-52.0)
[2021-07-12 00:56] LABS: PARTIAL THROMBOPLASTIN TIME 29 SECONDS (22-32)
[2021-07-12 00:58] LABS: ALANINE AMINOTRANSFERASE 30 U/L (12-78); ALBUMIN 3.6 G/DL (3.4-5.0); ALBUMIN/GLOBULIN RATIO 1.8 (1.1-1.5); ALKALINE PHOSPHATASE 40 IU/L (46-116); ANION GAP 12 (8-16); ASPARTATE AMINO TRANSFERASE 71 U/L (10-37); BILIRUBIN,TOTAL 0.5 MG/DL (0.1-1.0); BLOOD UREA NITROGEN 18 MG/DL (7-18); BUN/CREATININE RATIO 14.6 (5.4-32.0); CALCIUM 8.2 MG/DL (8.5-10.1); CHLORIDE 111 MMOL/L (99-107); CREATININE 1.23 MG/DL (0.60-1.10); GLUCOSE 128 MG/DL (70-104); MAGNESIUM 2.4 MG/DL (1.5-2.4); PHOSPHORUS 3.2 MG/DL (2.3-4.5); POTASSIUM 4.1 MMOL/L (3.5-5.1); SODIUM 145 MMOL/L (135-145); TOTAL CARBON DIOXIDE 22.5 MMOL/L (24-32); TOTAL PROTEIN 5.6 G/DL (6.4-8.2); eGFR 57 ML/MIN
--- NOTE | 2021-07-12 03:40 | NUR ---
pt briefly placed on CPAP pt became apneic placed back on a rate,
--- NOTE | 2021-07-12 03:55 | NUR ---
electrolyte replaced as needed per MD orders
--- NOTE | 2021-07-12 05:23 | NUR ---
0400 attempted SBT again, pt became apneic after about 30 min needing to be placed back on SIMV
--- NOTE | 2021-07-12 06:08 | NUR ---
report given to rec rn plan of care reviewed
--- NOTE | 2021-07-12 06:29 | NUR ---
Patient in room ICU 2041. I have received report from B and had the opportunity to ask questions and assume patient care.
[2021-07-12 07:54] LABS: ABG BASE EXCESS -2.8 mmol/L (-2.0-2.0); ABG HCO3 21.6 mmol/L (22.0-26.0); ABG OXYGEN SATURATION 96.8 % (94-97); ABG PCO2 (T) 35.4 mmHg (35.0-48.0); ABG PO2 (T) 95.1 mmHg (75.0-100.0); FCOHb 0.3 % (0.0-3.9); FMetHb 0.4 % (0.0-1.5); FO2Hb 96.1 % (94-97); PEEP 5 cm H2O; TOTAL HEMOGLOBIN 7.7 G/dl (14.0-18.0)
[2021-07-12] MEDS ORDERED: albuterol 2.5 MG/3 ML nebule NEB PRN (08:25)
[2021-07-12] MEDS: gabapentin 300mg capsule PO SCH ×3 (09:01→21:29)
[2021-07-12] MEDS: vancomycin/NS 1 GM ADD-VANTAGE 250 ML IV SCH ×2 (09:01→21:29)
[2021-07-12] MEDS: pantoprazole 40mg Tablet.DR PO SCH (09:01)
[2021-07-12] MEDS: mupirocin 2% nasal ointment 1gm UD NS SCH ×2 (09:02→21:29)
[2021-07-12] MEDS: metoprolol tartrate 12.5mg (1/2 tablet) PO SCH ×2 (09:02→20:00)
[2021-07-12] MEDS: aspirin 325mg tablet, delayed-release (Ecotrin) PO SCH (09:02)
[2021-07-12] MEDS: sennosides/docusate sodium tablet PO SCH ×2 (09:02→21:28)
[2021-07-12] MEDS ORDERED: dexmedetomidin/NS 400mcg/100ml 100 ML IV SCH (10:35)
--- NOTE | 2021-07-12 11:35 | NUR ---
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 Will continue to monitor. Addendum: 07/12/21 at [address] Amended: Links added.
[2021-07-12] MEDS: HYDROcodone/acetaminophen 10/325mg tab PO PRN (13:38)
[2021-07-12] MEDS: albumin (Human) 5% 250ml 250 ML IV PRN (16:54)
--- NOTE | 2021-07-12 17:45 | NUR ---
Patient's HR slowly increased. ST 100-110. Blood sent to lab for H/H. Remains on Levo @ 0.4 mcg/kg/min to keep MAP > 65. Chest tube continuous with large continuous air leak. Dressing changed and connections checked without improvement in air leak.
[2021-07-12 18:09] LABS: MEAN CORPUSCULAR HEMOGLOBIN 31.9 PG (27.0-31.0); MEAN CORPUSCULAR HGB CONC 34.1 g/dL (33.0-36.5); MEAN CORPUSCULAR VOLUME 93.5 FL (78-98); MEAN PLATELET VOLUME 9.1 FL (7.4-10.4); PLATELET COUNT 127 X10'3 (140-440); RED BLOOD COUNT 2.01 X10'6 (4.70-6.10); RED CELL DISTRIBUTION WIDTH 13.4 % (11.5-14.5); WHITE BLOOD COUNT 21.3 X10'3 (4.5-11.0)
[2021-07-12 18:12] LABS: HEMATOCRIT 18.8 % (42.0-52.0); HEMOGLOBIN 6.4 g/dl (14.0-17.9)
--- NOTE | 2021-07-12 18:25 | NUR ---
Problems reprioritized. Patient report given, questions answered & plan of care reviewed with Laisha TREVINO.
--- NOTE | 2021-07-12 18:30 | NUR ---
Patient in room ICU 2041. I have received report from BELINDA Chong and had the opportunity to ask questions and assume patient care.
[2021-07-13] VITALS (24 sets, daily range): BP systolic 87–127; BP diastolic 44–66
[2021-07-13] MEDS: ceFAZolin/D5W- 1GM premix 50 ML IV SCH (00:32)
[2021-07-13 03:44] LABS: BASOPHILS % (AUTO) 0.1 % (0-1); EOSINOPHILS % (AUTO) 0 % (0-6); HEMATOCRIT 22.3 % (42.0-52.0); HEMOGLOBIN 7.6 g/dl (14.0-17.9); LYMPHOCYTES # (AUTO) 0.8 X10'3 (1.1-4.8); LYMPHOCYTES % (AUTO) 4.9 % (21-51); MEAN CORPUSCULAR HEMOGLOBIN 31.3 PG (27.0-31.0); MEAN CORPUSCULAR HGB CONC 33.9 g/dL (33.0-36.5); MEAN CORPUSCULAR VOLUME 92.3 FL (78-98); MEAN PLATELET VOLUME 9.1 FL (7.4-10.4); MONOCYTES # (AUTO) 1.1 X10'3 (0-0.9); MONOCYTES % (AUTO) 6.3 % (2-12); NEUTROPHILS # (AUTO) 15.1 X10'3 (1.8-7.7); NEUTROPHILS % (AUTO) 88.7 % (42-75); PLATELET COUNT 107 X10'3 (140-440); RED BLOOD COUNT 2.42 X10'6 (4.70-6.10)
[2021-07-13 03:57] LABS: ANION GAP 7 (8-16); BLOOD UREA NITROGEN 23 MG/DL (7-18); BUN/CREATININE RATIO 21.1 (5.4-32.0); CALCIUM 8.1 MG/DL (8.5-10.1); CHLORIDE 110 MMOL/L (99-107); CREATININE 1.09 MG/DL (0.60-1.10); GLUCOSE 133 MG/DL (70-104); MAGNESIUM 2.1 MG/DL (1.5-2.4); PHOSPHORUS 3.4 MG/DL (2.3-4.5); POTASSIUM 4.5 MMOL/L (3.5-5.1); SODIUM 142 MMOL/L (135-145); TOTAL CARBON DIOXIDE 25.2 MMOL/L (24-32); eGFR 65 ML/MIN
[2021-07-13] MEDS: magnesium 2GM in 50ml NS 50 ML IV PRN (04:26)
--- NOTE | 2021-07-13 06:36 | NUR ---
Problems reprioritized. Patient report given, questions answered & plan of care reviewed with BELINDA Chong.
--- NOTE | 2021-07-13 06:55 | NUR ---
Patient in room ICU 2041. I have received report from Laisha TREVINO and had the opportunity to ask questions and assume patient care.
[2021-07-13] MEDS ORDERED: pantoprazole 40mg Tablet.DR PO SCH (07:30)
[2021-07-13] MEDS: metoprolol tartrate 12.5mg (1/2 tablet) PO SCH ×2 (08:10→20:01)
[2021-07-13] MEDS: sennosides/docusate sodium tablet PO SCH ×2 (08:10→20:00)
[2021-07-13] MEDS: pantoprazole 40mg Tablet.DR PO SCH (08:10)
[2021-07-13] MEDS: aspirin 325mg tablet, delayed-release (Ecotrin) PO SCH (08:10)
[2021-07-13] MEDS: gabapentin 300mg capsule PO SCH ×2 (08:11→13:17)
[2021-07-13] MEDS: mupirocin 2% nasal ointment 1gm UD NS SCH (08:11)
[2021-07-13] MEDS: HYDROcodone/acetaminophen 10/325mg tab PO PRN ×2 (08:11→21:26)
--- NOTE | 2021-07-13 18:22 | NUR ---
Problems reprioritized. Patient report given, questions answered & plan of care reviewed with Laisha TREVINO.
--- NOTE | 2021-07-13 18:30 | NUR ---
Patient in room ICU 2041. I have received report from BELINDA Chong and had the opportunity to ask questions and assume patient care.
[2021-07-14] VITALS (21 sets, daily range): BP systolic 83–125; BP diastolic 45–75
[2021-07-14 04:37] LABS: BASOPHILS % (AUTO) 0.4 % (0-1); EOSINOPHILS # (AUTO) 0.1 X10'3 (0-0.9); EOSINOPHILS % (AUTO) 0.6 % (0-6); HEMOGLOBIN 7.5 g/dl (14.0-17.9); LYMPHOCYTES # (AUTO) 1.3 X10'3 (1.1-4.8); MEAN CORPUSCULAR HEMOGLOBIN 31.8 PG (27.0-31.0); MEAN CORPUSCULAR HGB CONC 34.2 g/dL (33.0-36.5); MEAN CORPUSCULAR VOLUME 92.9 FL (78-98); MEAN PLATELET VOLUME 9.8 FL (7.4-10.4); MONOCYTES # (AUTO) 0.8 X10'3 (0-0.9); NEUTROPHILS # (AUTO) 9.9 X10'3 (1.8-7.7); PLATELET COUNT 109 X10'3 (140-440); RED BLOOD COUNT 2.36 X10'6 (4.70-6.10); RED CELL DISTRIBUTION WIDTH 13.8 % (11.5-14.5); WHITE BLOOD COUNT 12.2 X10'3 (4.5-11.0)
[2021-07-14 04:43] LABS: ALBUMIN 2.7 G/DL (3.4-5.0); ANION GAP 6 (8-16); BLOOD UREA NITROGEN 25 MG/DL (7-18); BUN/CREATININE RATIO 25.8 (5.4-32.0); CALCIUM 7.8 MG/DL (8.5-10.1); CHLORIDE 107 MMOL/L (99-107); CREATININE 0.97 MG/DL (0.60-1.10); GLUCOSE 104 MG/DL (70-104); MAGNESIUM 2.1 MG/DL (1.5-2.4); PHOSPHORUS 3.2 MG/DL (2.3-4.5); POTASSIUM 3.8 MMOL/L (3.5-5.1); SODIUM 139 MMOL/L (135-145); TOTAL CARBON DIOXIDE 25.6 MMOL/L (24-32); eGFR 75 ML/MIN
[2021-07-14 04:45] LABS: HEMATOCRIT 21.9 % (42.0-52.0)
[2021-07-14] MEDS: magnesium 2GM in 50ml NS 50 ML IV PRN (05:12)
--- NOTE | 2021-07-14 06:15 | NUR ---
Problems reprioritized. Patient report given, questions answered & plan of care reviewed with BELINDA Mckeon.
[2021-07-14] MEDS ORDERED: potassium Cl 20mEq/100mL bag 100 ML IV PRN (07:30)
[2021-07-14] MEDS ORDERED: magnesium 2GM in 50ml NS 50 ML IV PRN (07:30)
[2021-07-14] MEDS ORDERED: magnesium 4gm in 100ml NS 100 ML IV PRN (07:30)
[2021-07-14] MEDS ORDERED: potassium Cl 40MEQ/1/2NS 520ml 520 ML IV PRN (07:30)
[2021-07-14] MEDS ORDERED: potassium CL 10mEq/100ml bag 100 ML IV PRN (07:30)
[2021-07-14] MEDS ORDERED: potassium Cl 20 mEq SR tablet PO PRN (07:30)
[2021-07-14] MEDS ORDERED: potassium Cl 40MEQ/250ML bag 250 ML IV PRN (07:30)
[2021-07-14] MEDS: magnesium Cl slow-release 64mg tablet PO SCH ×2 (07:32→20:21)
[2021-07-14] MEDS: pantoprazole 40mg Tablet.DR PO SCH (07:36)
[2021-07-14] MEDS: aspirin 325mg tablet, delayed-release (Ecotrin) PO SCH (07:37)
[2021-07-14] MEDS: potassium Cl 20 mEq SR tablet PO SCH ×2 (07:37→20:24)
[2021-07-14] MEDS: sennosides/docusate sodium tablet PO SCH ×2 (07:37→20:23)
[2021-07-14] MEDS: metoprolol tartrate 12.5mg (1/2 tablet) PO SCH ×2 (08:00→20:23)
--- NOTE | 2021-07-14 08:55 | NUR ---
Problems reprioritized. Patient report given, questions answered & plan of care reviewed with Arlette TREVINO.
[2021-07-14] MEDS ORDERED: NORepinephrine 8 MG in NS 250 ML BAG (32 mcg/ml) IV ONE (10:12)
[2021-07-14] MEDS ORDERED: rocuronium 10mg/ml inj IV ONE (10:12)
[2021-07-14] MEDS ORDERED: aminocaproic acid 250 MG/1 ML inj. ONE (10:12)
[2021-07-14] MEDS ORDERED: protamine sulf. 10mg/ml inj. IV ONE (10:12)
[2021-07-14] MEDS ORDERED: sevoflurane 250ml liquid IH ONE (10:12)
--- NOTE | 2021-07-14 14:08 | NUR ---
Patient in room ICU 2041. I have received report from BELINDA Chong and had the opportunity to ask questions and awaiting pts arrival from the ICU.
--- NOTE | 2021-07-14 14:30 | NUR ---
Patient arrived from ICU, hand off with Arlette TREVINO. Pt Alert and Orientedx4. Walked with 1 person contact to bed. BLL, SRx2, CL within reach, non skid socks on. Chest tube hooked to low continuous suction, air leaked noted, MD aware. Vitals stable BP 106/52 HR 98 R18 02 92 4L NC Pain 3/10 lateral chest from chest tube. Pt comfortable, will continue to monitor.
--- NOTE | 2021-07-14 14:38 | NUR ---
Report given to Larisa TREVINO. Patient transferred to room 3009 via w/c with belongings. See belongings intervention. SR. BP stable. On O2 @ 4/l. Chest tube continue with air leak. No further changes.
--- NOTE | 2021-07-14 18:00 | NUR ---
Patient in room PCU 3009. I have received report from TRESSA TREVINO and had the opportunity to ask questions and assume patient care. PLACED ZOLL AT BEDSIDE, PACER WIRES INTACT. AYLA TREVINO
--- NOTE | 2021-07-14 18:09 | NUR ---
Problems reprioritized. Patient report given, questions answered & plan of care reviewed with BELINDA Matute. Pt laying in bed watching tv comfortably. All pt needs met at this time.
[2021-07-15 02:00] VITALS: BP 105/60
[2021-07-15] MEDS: acetaminophen 325mg tablet PO PRN (02:20)
--- NOTE | 2021-07-15 06:31 | NUR ---
Patient in room PCU 3009. I have received report from Bradley TREVINO and had the opportunity to ask questions and assume patient care.
[2021-07-15 06:51] LABS: ALBUMIN 2.7 G/DL (3.4-5.0); ANION GAP 11 (8-16); BLOOD UREA NITROGEN 29 MG/DL (7-18); BUN/CREATININE RATIO 27.4 (5.4-32.0); CALCIUM 8.3 MG/DL (8.5-10.1); CHLORIDE 108 MMOL/L (99-107); CREATININE 1.06 MG/DL (0.60-1.10); GLUCOSE 112 MG/DL (70-104); SODIUM 145 MMOL/L (135-145); TOTAL CARBON DIOXIDE 25.8 MMOL/L (24-32); eGFR 67 ML/MIN
[2021-07-15 06:52] LABS: BASOPHILS % (AUTO) 0.3 % (0-1); EOSINOPHILS # (AUTO) 0.1 X10'3 (0-0.9); EOSINOPHILS % (AUTO) 1.2 % (0-6); HEMATOCRIT 26.1 % (42.0-52.0); LYMPHOCYTES # (AUTO) 0.8 X10'3 (1.1-4.8); LYMPHOCYTES % (AUTO) 6.7 % (21-51); MEAN CORPUSCULAR HEMOGLOBIN 31.7 PG (27.0-31.0); MEAN CORPUSCULAR HGB CONC 34.7 g/dL (33.0-36.5); MEAN CORPUSCULAR VOLUME 91.3 FL (78-98); MEAN PLATELET VOLUME 9.4 FL (7.4-10.4); MONOCYTES % (AUTO) 9.1 % (2-12); NEUTROPHILS # (AUTO) 9.4 X10'3 (1.8-7.7); NEUTROPHILS % (AUTO) 82.7 % (42-75); PLATELET COUNT 144 X10'3 (140-440); RED BLOOD COUNT 2.86 X10'6 (4.70-6.10); RED CELL DISTRIBUTION WIDTH 14.3 % (11.5-14.5); WHITE BLOOD COUNT 11.3 X10'3 (4.5-11.0)
[2021-07-15 07:00] VITALS: BP 102/54
--- NOTE | 2021-07-15 07:02 | NUR ---
Patient in room PCU 3009. I have received report from Juju TREVINO and had the opportunity to ask questions and assume patient care. Pt semi fowlers in bed, breathing even and non labored. chest rising and falling evenly. Chest tube to suction, air leak present, aware per report from juju. pt holding sternal precaution pillow on chest. no s/sx acute distress.
[2021-07-15] MEDS: pantoprazole 40mg Tablet.DR PO SCH (08:04)
[2021-07-15] MEDS: metoprolol tartrate 12.5mg (1/2 tablet) PO SCH ×2 (08:05→19:39)
[2021-07-15] MEDS: aspirin 325mg tablet, delayed-release (Ecotrin) PO SCH (08:06)
[2021-07-15] MEDS: sennosides/docusate sodium tablet PO SCH ×2 (08:06→19:40)
[2021-07-15] MEDS: magnesium Cl slow-release 64mg tablet PO SCH ×2 (08:06→19:40)
[2021-07-15] MEDS: potassium Cl 20 mEq SR tablet PO SCH ×2 (08:06→19:40)
[2021-07-15] MEDS ORDERED: furosemide 40mg/4ml inj IV ONE (10:45)
[2021-07-15 11:00] VITALS: BP 103/58
[2021-07-15 15:00] VITALS: BP 113/62
--- NOTE | 2021-07-15 17:30 | NUR ---
Chest tube atrium changed due to atrium knocked over by patient and BM spread on it. pt, area, and tube thoroughly cleansed
[2021-07-15 18:00] VITALS: BP 105/60
--- NOTE | 2021-07-15 18:34 | NUR ---
Patient in room PCU 3009. I have received report from Nadine TREVINO and had the opportunity to ask questions and assume patient care.
--- NOTE | 2021-07-15 19:12 | NUR ---
Problems reprioritized. Patient report given, questions answered & plan of care reviewed with ellie TREVINO. pt matias s/sx acute distress. alert and verbal. chest tube patent.
[2021-07-15] MEDS: HYDROcodone/acetaminophen 10/325mg tab PO PRN (19:53)
[2021-07-15 22:00] VITALS: BP 101/56
[2021-07-16 02:00] VITALS: BP 106/63
--- NOTE | 2021-07-16 06:32 | NUR ---
Problems reprioritized. Patient report given, questions answered & plan of care reviewed with PAT RN.
[2021-07-16 06:38] LABS: BASOPHILS % (AUTO) 0.3 % (0-1); EOSINOPHILS # (AUTO) 0.7 X10'3 (0-0.9); EOSINOPHILS % (AUTO) 6.1 % (0-6); HEMATOCRIT 27.5 % (42.0-52.0); HEMOGLOBIN 9.4 g/dl (14.0-17.9); LYMPHOCYTES % (AUTO) 8.8 % (21-51); MEAN CORPUSCULAR HEMOGLOBIN 31.6 PG (27.0-31.0); MEAN CORPUSCULAR HGB CONC 34.1 g/dL (33.0-36.5); MEAN CORPUSCULAR VOLUME 92.6 FL (78-98); MEAN PLATELET VOLUME 9.4 FL (7.4-10.4); MONOCYTES # (AUTO) 1.2 X10'3 (0-0.9); MONOCYTES % (AUTO) 10.1 % (2-12); NEUTROPHILS # (AUTO) 8.6 X10'3 (1.8-7.7); NEUTROPHILS % (AUTO) 74.7 % (42-75); PLATELET COUNT 176 X10'3 (140-440); RED BLOOD COUNT 2.97 X10'6 (4.70-6.10); RED CELL DISTRIBUTION WIDTH 14.1 % (11.5-14.5); WHITE BLOOD COUNT 11.5 X10'3 (4.5-11.0)
[2021-07-16 06:40] LABS: ALBUMIN 2.6 G/DL (3.4-5.0); ANION GAP 11 (8-16); BLOOD UREA NITROGEN 30 MG/DL (7-18); CALCIUM 8.5 MG/DL (8.5-10.1); CHLORIDE 108 MMOL/L (99-107); CREATININE 1.07 MG/DL (0.60-1.10); GLUCOSE 100 MG/DL (70-104); SODIUM 146 MMOL/L (135-145); TOTAL CARBON DIOXIDE 26.9 MMOL/L (24-32); eGFR 67 ML/MIN
[2021-07-16 07:00] VITALS: BP 112/61
[2021-07-16] MEDS: magnesium Cl slow-release 64mg tablet PO SCH ×2 (08:00→19:47)
[2021-07-16] MEDS: aspirin 325mg tablet, delayed-release (Ecotrin) PO SCH (08:11)
[2021-07-16] MEDS: sennosides/docusate sodium tablet PO SCH ×2 (08:11→19:46)
[2021-07-16] MEDS: pantoprazole 40mg Tablet.DR PO SCH (08:11)
[2021-07-16] MEDS: metoprolol tartrate 12.5mg (1/2 tablet) PO SCH ×2 (08:12→19:47)
[2021-07-16 09:21] LABS: MAGNESIUM 2.3 MG/DL (1.5-2.4)
[2021-07-16] MEDS: potassium Cl 20 mEq SR tablet PO SCH ×2 (09:35→19:46)
--- NOTE | 2021-07-16 10:06 | NUR ---
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 Pt may benefit from Alhaji Smoothie BID LD to aid w/ wound healing. LBM 07/15 receiving routine and PRN bowel care. Will continue to monitor PO trends and make recommendations as appropriate. Recs: 1. Continue Regular/NCS diet as tolerated 2. Alhaji smoothie BID BD, pending MD verification 3. Bowel care per rx 4. Weekly wts Addendum: 07/16/21 at [address] Amended: Links added.
[2021-07-16 11:00] VITALS: BP 98/45
[2021-07-16 15:00] VITALS: BP 100/54
[2021-07-16] MEDS: JUVEN Smoothie Arginine/Glut./Ca2+Bmb (Juven 19.3pkt) 240ml cup PO SCH (17:30)
[2021-07-16 18:00] VITALS: BP 113/62
--- NOTE | 2021-07-16 18:20 | NUR ---
Patient in room PCU 3009. I have received report from BELINDA Randle and had the opportunity to ask questions and assume patient care.
--- NOTE | 2021-07-16 19:06 | NUR ---
Patient resting comfortably on bed, watching TV. He has no complaints, he was helped to boost up in bed.
[2021-07-17 06:00] VITALS: BP 117/67
--- NOTE | 2021-07-17 06:27 | NUR ---
Problems reprioritized. Patient report given, questions answered & plan of care reviewed with BELINDA Castillo.
[2021-07-17 07:13] LABS: BASOPHILS % (AUTO) 0.4 % (0-1); EOSINOPHILS # (AUTO) 0.5 X10'3 (0-0.9); EOSINOPHILS % (AUTO) 4.5 % (0-6); HEMATOCRIT 25.9 % (42.0-52.0); LYMPHOCYTES # (AUTO) 0.8 X10'3 (1.1-4.8); LYMPHOCYTES % (AUTO) 6.6 % (21-51); MEAN CORPUSCULAR HEMOGLOBIN 32.1 PG (27.0-31.0); MEAN CORPUSCULAR HGB CONC 34.7 g/dL (33.0-36.5); MEAN CORPUSCULAR VOLUME 92.3 FL (78-98); MEAN PLATELET VOLUME 9.5 FL (7.4-10.4); MONOCYTES # (AUTO) 1.1 X10'3 (0-0.9); MONOCYTES % (AUTO) 8.8 % (2-12); NEUTROPHILS # (AUTO) 9.8 X10'3 (1.8-7.7); NEUTROPHILS % (AUTO) 79.7 % (42-75); PLATELET COUNT 191 X10'3 (140-440); RED BLOOD COUNT 2.81 X10'6 (4.70-6.10); RED CELL DISTRIBUTION WIDTH 13.9 % (11.5-14.5); WHITE BLOOD COUNT 12.3 X10'3 (4.5-11.0)
[2021-07-17] MEDS: JUVEN Smoothie Arginine/Glut./Ca2+Bmb (Juven 19.3pkt) 240ml cup PO SCH ×2 (07:30→17:58)
[2021-07-17 07:35] LABS: ALBUMIN 2.4 G/DL (3.4-5.0); ANION GAP 13 (8-16); BLOOD UREA NITROGEN 29 MG/DL (7-18); BUN/CREATININE RATIO 30.5 (5.4-32.0); CALCIUM 8.6 MG/DL (8.5-10.1); CHLORIDE 107 MMOL/L (99-107); CREATININE 0.95 MG/DL (0.60-1.10); GLUCOSE 100 MG/DL (70-104); POTASSIUM 4.1 MMOL/L (3.5-5.1); SODIUM 143 MMOL/L (135-145); eGFR 76 ML/MIN
[2021-07-17] MEDS: magnesium Cl slow-release 64mg tablet PO SCH ×2 (10:02→19:42)
[2021-07-17] MEDS: sennosides/docusate sodium tablet PO SCH ×2 (10:03→19:41)
[2021-07-17] MEDS: metoprolol tartrate 12.5mg (1/2 tablet) PO SCH ×2 (10:03→19:41)
[2021-07-17] MEDS: potassium Cl 20 mEq SR tablet PO SCH ×3 (10:03→20:16)
[2021-07-17] MEDS: pantoprazole 40mg Tablet.DR PO SCH (10:03)
[2021-07-17] MEDS: aspirin 325mg tablet, delayed-release (Ecotrin) PO SCH (10:03)
[2021-07-17 11:00] VITALS: BP 121/64
[2021-07-17 15:00] VITALS: BP 104/60
[2021-07-17 18:00] VITALS: BP 110/60
--- NOTE | 2021-07-17 18:19 | NUR ---
Problems reprioritized. Patient report given, questions answered & plan of care reviewed with An TREVINO and Prabha TREVINO.
--- NOTE | 2021-07-17 18:20 | NUR ---
Patient in room PCU 3009. BELINDA Armando and I have received report from BELINDA Castillo and had the opportunity to ask questions and assume patient care. Patient was sitting up in hospital in no obvious distress, we will continue to monitor.
--- NOTE | 2021-07-17 18:57 | NUR ---
Patient in room PCU 3009. I have received report from Anna TREVINO and had the opportunity to ask questions and assume patient care.
[2021-07-17] MEDS: acetaminophen 325mg tablet PO PRN (19:40)
[2021-07-17 22:00] VITALS: BP 94/56
[2021-07-18 02:00] VITALS: BP 127/69
--- NOTE | 2021-07-18 06:15 | NUR ---
Problems reprioritized. Patient report given, questions answered & plan of care reviewed with Anna TREVINO.
[2021-07-18 07:00] VITALS: BP 124/71
[2021-07-18] MEDS: pantoprazole 40mg Tablet.DR PO SCH (07:30)
[2021-07-18] MEDS: JUVEN Smoothie Arginine/Glut./Ca2+Bmb (Juven 19.3pkt) 240ml cup PO SCH ×2 (07:30→17:32)
[2021-07-18 07:51] LABS: ALBUMIN 2.5 G/DL (3.4-5.0); ANION GAP 14 (8-16); BLOOD UREA NITROGEN 28 MG/DL (7-18); BUN/CREATININE RATIO 27.7 (5.4-32.0); CALCIUM 8.7 MG/DL (8.5-10.1); CHLORIDE 108 MMOL/L (99-107); CREATININE 1.01 MG/DL (0.60-1.10); GLUCOSE 96 MG/DL (70-104); POTASSIUM 4.3 MMOL/L (3.5-5.1); SODIUM 145 MMOL/L (135-145); TOTAL CARBON DIOXIDE 23.5 MMOL/L (24-32); eGFR 71 ML/MIN
[2021-07-18] MEDS: sennosides/docusate sodium tablet PO SCH ×2 (08:00→19:22)
[2021-07-18] MEDS ORDERED: ASPI-1071 PO (09:03)
[2021-07-18] MEDS ORDERED: HYDR-3972 PO (09:03)
[2021-07-18] MEDS: magnesium Cl slow-release 64mg tablet PO SCH ×2 (09:04→19:22)
[2021-07-18] MEDS: potassium Cl 20 mEq SR tablet PO SCH ×2 (09:04→19:22)
[2021-07-18] MEDS: aspirin 325mg tablet, delayed-release (Ecotrin) PO SCH (09:06)
[2021-07-18] MEDS: acetaminophen 325mg tablet PO PRN (09:06)
[2021-07-18] MEDS: metoprolol tartrate 12.5mg (1/2 tablet) PO SCH ×2 (09:07→19:21)
[2021-07-18] MEDS ORDERED: LIDOcaine 1% W/epiNEPHrine 1:100,000 20ml vial SQ ONE (10:00)
[2021-07-18 11:00] VITALS: BP 111/67
--- NOTE | 2021-07-18 14:36 | NUR ---
Patient is alert In bed with no distress with call light within reach.
[2021-07-18 15:00] VITALS: BP 123/61
--- NOTE | 2021-07-18 17:01 | NUR ---
Ashley placed Thora-vent on left upper chest, after xray confirming placement, chest tube was removed. Site covered with tega-derm and reinforced by nursing staff with gauze and medipore tape. Patient tolerated procedure well.
[2021-07-18 18:00] VITALS: BP 127/64
--- NOTE | 2021-07-18 18:20 | NUR ---
Patient in room PCU 3009. BELINDA Armando and I have received report from BELINDA Castillo and had the opportunity to ask questions and assume patient care. Patient is resting comfortably on bed, just finished dinner. He has no complaints at this time, we will continue to monitor.
--- NOTE | 2021-07-18 18:24 | NUR ---
Patient in room PCU 3009. I have received report from Anna TREVINO and had the opportunity to ask questions and assume patient care.
[2021-07-18 22:00] VITALS: BP 124/65
[2021-07-19 02:00] VITALS: BP 135/70
--- NOTE | 2021-07-19 06:24 | NUR ---
Problems reprioritized. Patient report given, questions answered & plan of care reviewed with Leanna TREVINO.
[2021-07-19 07:00] VITALS: BP 144/73
[2021-07-19] MEDS: JUVEN Smoothie Arginine/Glut./Ca2+Bmb (Juven 19.3pkt) 240ml cup PO SCH ×2 (07:30→17:46)
[2021-07-19] MEDS: metoprolol tartrate 12.5mg (1/2 tablet) PO SCH ×2 (08:21→19:47)
[2021-07-19] MEDS: potassium Cl 20 mEq SR tablet PO SCH ×2 (08:21→19:47)
[2021-07-19] MEDS: magnesium Cl slow-release 64mg tablet PO SCH ×2 (08:21→19:47)
[2021-07-19] MEDS: pantoprazole 40mg Tablet.DR PO SCH (08:21)
[2021-07-19] MEDS: aspirin 325mg tablet, delayed-release (Ecotrin) PO SCH (08:21)
[2021-07-19] MEDS: sennosides/docusate sodium tablet PO SCH ×2 (08:21→19:47)
--- NOTE | 2021-07-19 08:42 | NUR ---
By phone Dr. Ojeda notified me that pnemo was worse today. I called Reinaldo Ribera to notify him but there was no answer . veneer supervisor notified. Will try to call Reinaldo again later.
--- NOTE | 2021-07-19 09:16 | NUR ---
Reassessment: Pt continues w/ similar PO intake, avg 50% x 11 meals on Regular diet and 25% of Alhaji Smoothies. Pt noted to be SOB w/ activity. LBM 07/15 receiving routine Senna. No change to nutrition intervention at this time, will continue to monitor. Recs: 1. Continue Regular/NCS diet as tolerated 2. Alhaji smoothie BID BD 3. Bowel care per rx 4. Weekly wts Addendum: 07/19/21 at [address] Amended: Links added.
[2021-07-19 09:51] LABS: ALBUMIN 2.7 G/DL (3.4-5.0); ANION GAP 13 (8-16); BLOOD UREA NITROGEN 25 MG/DL (7-18); BUN/CREATININE RATIO 24.5 (5.4-32.0); CALCIUM 8.7 MG/DL (8.5-10.1); CHLORIDE 106 MMOL/L (99-107); CREATININE 1.02 MG/DL (0.60-1.10); GLUCOSE 118 MG/DL (70-104); POTASSIUM 3.9 MMOL/L (3.5-5.1); SODIUM 142 MMOL/L (135-145); TOTAL CARBON DIOXIDE 23.5 MMOL/L (24-32); eGFR 70 ML/MIN
[2021-07-19 11:00] VITALS: BP 101/71
--- NOTE | 2021-07-19 11:55 | NUR ---
O2 Sat at rest on room air:_76__% If below 89%: Recovery O2 Sat at rest on _2__LPM:__76_%:__92_% via___nasal cannula (mask/nasal cannula, etc..) No further documentation is necessary. If O2 Sat did not drop below 89% on room air,ambulate patient on room air. O2 Sat while ambulating on room air:___% Recovery O2 Sat while ambulating on ___LPM:___% No further documentation is necessary. If patient does not drop below 89% while ambulating, he/she does not qualify for home O2.
--- NOTE | 2021-07-19 12:22 | NUR ---
Reinaldo De Souza notified pneumo has gotten bigger per Dr. Ojeda in Radiology
--- NOTE | 2021-07-19 13:31 | NUR ---
Patient arrived to unit. Patient alert, oriented , and appropriate. Cardiac monitoring started per MD order .Patient oriented to room and call light. Also connected to vitals machine to continue post op vitals
[2021-07-19 15:00] VITALS: BP 114/75
--- NOTE | 2021-07-19 15:54 | NUR ---
left message on@ [phone] with Reinaldo Ribera to discuss patient d/c. Pt no longer feels he is appropriate for DC and daughter is concerned about increased confusion. I will not DC patient at this time.
--- NOTE | 2021-07-19 16:28 | NUR ---
Per GENESIS Cruz ok to hold DC and he will send Dr. Ramirez up to talk to the patient
--- NOTE | 2021-07-19 16:40 | NUR ---
PER GENESIS Ramirez would like a chest xray ordered for this afternoon d/t increased pt confusion
[2021-07-19 18:00] VITALS: BP 117/72
--- NOTE | 2021-07-19 18:10 | NUR ---
Problems reprioritized. Patient report given, questions answered & plan of care reviewed with Prabha TREVINO.
--- NOTE | 2021-07-19 18:11 | NUR ---
Patient in room PCU 3009. I have received report from Leanna TREVINO and had the opportunity to ask questions and assume patient care.
[2021-07-19 22:00] VITALS: BP 110/63
[2021-07-20 02:00] VITALS: BP 127/74
--- NOTE | 2021-07-20 06:07 | NUR ---
Problems reprioritized. Patient report given, questions answered & plan of care reviewed with Leanna TREVINO.
--- NOTE | 2021-07-20 06:22 | NUR ---
Patient in room U 3009. I have received report from Prabha TREVINO and had the opportunity to ask questions and assume patient care. Patient is sleeping in bed in no acute distress.
[2021-07-20 07:00] VITALS: BP 115/66
[2021-07-20 07:09] LABS: ALBUMIN 2.4 G/DL (3.4-5.0); ANION GAP 11 (8-16); BLOOD UREA NITROGEN 27 MG/DL (7-18); BUN/CREATININE RATIO 30.3 (5.4-32.0); CALCIUM 8.6 MG/DL (8.5-10.1); CHLORIDE 110 MMOL/L (99-107); CREATININE 0.89 MG/DL (0.60-1.10); GLUCOSE 110 MG/DL (70-104); POTASSIUM 4.3 MMOL/L (3.5-5.1); SODIUM 144 MMOL/L (135-145); eGFR 82 ML/MIN
[2021-07-20] MEDS: aspirin 325mg tablet, delayed-release (Ecotrin) PO SCH (07:49)
[2021-07-20] MEDS: potassium Cl 20 mEq SR tablet PO SCH ×2 (07:49→19:51)
[2021-07-20] MEDS: metoprolol tartrate 12.5mg (1/2 tablet) PO SCH ×2 (07:49→19:50)
[2021-07-20] MEDS: magnesium Cl slow-release 64mg tablet PO SCH ×2 (07:49→20:00)
[2021-07-20] MEDS: sennosides/docusate sodium tablet PO SCH ×2 (07:49→19:46)
[2021-07-20] MEDS: JUVEN Smoothie Arginine/Glut./Ca2+Bmb (Juven 19.3pkt) 240ml cup PO SCH ×2 (07:49→19:50)
[2021-07-20] MEDS: pantoprazole 40mg Tablet.DR PO SCH (07:49)
[2021-07-20] MEDS ORDERED: gabapentin 400mg capsule PO ONE (10:55)
[2021-07-20] MEDS ORDERED: cefazolin/dext.iso 2gm/50ml 50 ML IV ONE (10:55)
[2021-07-20 11:00] VITALS: BP 97/57
[2021-07-20 12:08] LABS: PARTIAL THROMBOPLASTIN TIME 26 SECONDS (22-32)
[2021-07-20 15:00] VITALS: BP 102/55
--- NOTE | 2021-07-20 18:32 | NUR ---
Problems reprioritized. Patient report given, questions answered & plan of care reviewed with Melly Pickard RN. Patient resting in no acute distress.
[2021-07-20 18:41] VITALS: BP 109/65
--- NOTE | 2021-07-20 18:45 | NUR ---
Patient in room PCU 3009. I have received report from DOTTIE TREVINO and had the opportunity to ask questions and assume patient care.
[2021-07-20 22:00] VITALS: BP 107/62
[2021-07-21] VITALS (23 sets, daily range): BP systolic 95–143; BP diastolic 46–76
[2021-07-21 06:10] LABS: BASOPHILS % (AUTO) 0.4 % (0-1); EOSINOPHILS # (AUTO) 0.4 X10'3 (0-0.9); EOSINOPHILS % (AUTO) 3.9 % (0-6); HEMOGLOBIN 10.2 g/dl (14.0-17.9); LYMPHOCYTES # (AUTO) 0.8 X10'3 (1.1-4.8); LYMPHOCYTES % (AUTO) 6.8 % (21-51); MEAN CORPUSCULAR HEMOGLOBIN 30.5 PG (27.0-31.0); MEAN CORPUSCULAR HGB CONC 32.9 g/dL (33.0-36.5); MEAN CORPUSCULAR VOLUME 92.9 FL (78-98); MEAN PLATELET VOLUME 9.4 FL (7.4-10.4); MONOCYTES # (AUTO) 0.8 X10'3 (0-0.9); MONOCYTES % (AUTO) 6.6 % (2-12); NEUTROPHILS # (AUTO) 9.4 X10'3 (1.8-7.7); NEUTROPHILS % (AUTO) 82.3 % (42-75); PLATELET COUNT 342 X10'3 (140-440); RED BLOOD COUNT 3.34 X10'6 (4.70-6.10); RED CELL DISTRIBUTION WIDTH 13.7 % (11.5-14.5); WHITE BLOOD COUNT 11.4 X10'3 (4.5-11.0)
[2021-07-21 06:18] LABS: PARTIAL THROMBOPLASTIN TIME 27 SECONDS (22-32)
[2021-07-21 06:21] LABS: ALANINE AMINOTRANSFERASE 18 U/L (12-78); ALBUMIN 2.5 G/DL (3.4-5.0); ALBUMIN/GLOBULIN RATIO 0.6 (1.1-1.5); ALKALINE PHOSPHATASE 69 IU/L (46-116); ANION GAP 8 (8-16); ASPARTATE AMINO TRANSFERASE 14 U/L (10-37); BILIRUBIN,TOTAL 0.8 MG/DL (0.1-1.0); BLOOD UREA NITROGEN 27 MG/DL (7-18); BUN/CREATININE RATIO 28.7 (5.4-32.0); CALCIUM 8.7 MG/DL (8.5-10.1); CHLORIDE 107 MMOL/L (99-107); CREATININE 0.94 MG/DL (0.60-1.10); GLUCOSE 90 MG/DL (70-104); POTASSIUM 4.1 MMOL/L (3.5-5.1); SODIUM 141 MMOL/L (135-145); TOTAL CARBON DIOXIDE 26.3 MMOL/L (24-32); TOTAL PROTEIN 6.4 G/DL (6.4-8.2); eGFR 77 ML/MIN
--- NOTE | 2021-07-21 06:30 | NUR ---
Problems reprioritized. Patient report given, questions answered & plan of care reviewed with BELINDA TREVINO.
--- NOTE | 2021-07-21 06:42 | NUR ---
Patient in room PCU 3009. I have received report from [place] MCPHERSON RN and had the opportunity to ask questions and assume patient care.
[2021-07-21] MEDS: JUVEN Smoothie Arginine/Glut./Ca2+Bmb (Juven 19.3pkt) 240ml cup PO SCH ×2 (07:30→18:49)
[2021-07-21] MEDS: aspirin 325mg tablet, delayed-release (Ecotrin) PO SCH (08:00)
[2021-07-21] MEDS: potassium Cl 20 mEq SR tablet PO SCH ×2 (08:00→20:00)
[2021-07-21] MEDS: magnesium Cl slow-release 64mg tablet PO SCH ×2 (08:00→20:00)
[2021-07-21] MEDS: sennosides/docusate sodium tablet PO SCH ×2 (08:27→20:00)
[2021-07-21] MEDS: metoprolol tartrate 12.5mg (1/2 tablet) PO SCH ×2 (08:28→20:00)
[2021-07-21] MEDS: pantoprazole 40mg Tablet.DR PO SCH (08:28)
[2021-07-21] MEDS ORDERED: cefazolin/dext.iso 2gm/50ml 50 ML IV ONE (10:30)
[2021-07-21] MEDS ORDERED: gabapentin 400mg capsule PO ONE (10:30)
[2021-07-21] MEDS ORDERED: LIDOcaine 1% (10mg/ml) 2ml vial ONE (10:42)
[2021-07-21] MEDS ORDERED: BUPIVAcaine/PF 2.5 mg/ml (0.25%) 30ml vial ONE (10:50)
[2021-07-21] MEDS ORDERED: fentaNYL /PF 50mcg/ml 5ml ampule ONE (12:43)
[2021-07-21] MEDS ORDERED: ringers solution, lacted 1,000 ML IV SCH (12:55)
[2021-07-21] MEDS ORDERED: ondansetron/PF 4mg/2ml inj IV PRN (12:55)
[2021-07-21] MEDS ORDERED: morphine 2 MG/ML inj. syringe IV PRN (12:55)
[2021-07-21] MEDS ORDERED: HYDROmorphone/PF 0.2 MG/ML SYRINGE IV PRN (12:55)
[2021-07-21] MEDS ORDERED: sevoflurane 250ml liquid IH ONE (12:56)
[2021-07-21] MEDS ORDERED: TALC 4 GM VIAL ***intrapleural administration only IX ONE (13:45)
[2021-07-21] MEDS ORDERED: sugammadex 200mg/2ml injection IV ONE (14:14)
[2021-07-21] MEDS ORDERED: dexamethasone sod phosphate 4mg/ml inj. ONE (14:14)
[2021-07-21] MEDS ORDERED: ondansetron/PF 4mg/2ml inj ONE (14:14)
[2021-07-21] MEDS ORDERED: propofol inj 20 ML IV ONE (14:14)
[2021-07-21] MEDS ORDERED: LIDOcaine 2% (20mg/ml) 5ml vial ONE (14:14)
[2021-07-21] MEDS ORDERED: rocuronium 10mg/ml inj IV ONE (14:14)
--- NOTE | 2021-07-21 14:24 | NUR ---
Received from OR via , accompanied by Anesthesiologist GLO and report given by Anesthesiolgist. PT ARRIVES TO PACU WITH CL TO RIGHT NECK, 20G TO RIGHT WRIST, CT LEFT SIDE 20ML OUT, F/C 110 ML CLEAR YELLOW URINE, ART LINE LEFT WRIST. Addendum: 07/21/21 at 1635 by Mary Ann Pandey RN Amended: Links added.
[2021-07-21] MEDS ORDERED: morphine 4 MG/ML inj SYRINge IV PRN ×2 (14:25)
[2021-07-21] MEDS ORDERED: benzocaine/menthol oral lozeng 1 EACH BOX MM PRN (14:45)
[2021-07-21] MEDS: HYDROmorphone/PF 0.2 MG/ML SYRINGE IV PRN ×3 (14:51→16:09)
--- NOTE | 2021-07-21 16:14 | NUR ---
Report called to receiving nurse BELINDA TREVINO. Transferred via HOSPITAL BED WITH 02. PT BELONGINGS LEFT IN 3009. DENTURES TRANSFERED WITH PT TO PT ROOM FROM RR. BELINDA TREVINO AT TO RECEIVE PT. Addendum: 07/21/21 at 1632 by Mary Ann Pandey RN Amended: Links added.
[2021-07-21] MEDS: ceFAZolin inj. 1,000 MG in dextrose 5%-water 50ml 50 ML IV SCH (16:37)
[2021-07-22] MEDS: ceFAZolin inj. 1,000 MG in dextrose 5%-water 50ml 50 ML IV SCH ×2
--- NOTE | 2021-07-22 00:52 | NUR ---
reviewed and edited SRN assessment
[2021-07-22 02:00] VITALS: BP 113/59
[2021-07-22] MEDS: HYDROcodone/acetaminophen 10/325mg tab PO PRN (05:33)
[2021-07-22 05:55] LABS: BASOPHILS # (AUTO) 0.1 X10'3 (0-0.2); BASOPHILS % (AUTO) 0.3 % (0-1); EOSINOPHILS # (AUTO) 0.4 X10'3 (0-0.9); EOSINOPHILS % (AUTO) 1.2 % (0-6); HEMATOCRIT 29.5 % (42.0-52.0); HEMOGLOBIN 9.9 g/dl (14.0-17.9); LYMPHOCYTES # (AUTO) 0.5 X10'3 (1.1-4.8); LYMPHOCYTES % (AUTO) 1.6 % (21-51); MEAN CORPUSCULAR HEMOGLOBIN 30.9 PG (27.0-31.0); MEAN CORPUSCULAR HGB CONC 33.4 g/dL (33.0-36.5); MEAN CORPUSCULAR VOLUME 92.4 FL (78-98); MEAN PLATELET VOLUME 9.3 FL (7.4-10.4); MONOCYTES # (AUTO) 1.5 X10'3 (0-0.9); MONOCYTES % (AUTO) 4.8 % (2-12); NEUTROPHILS # (AUTO) 28.2 X10'3 (1.8-7.7); NEUTROPHILS % (AUTO) 92.1 % (42-75); PLATELET COUNT 363 X10'3 (140-440); RED BLOOD COUNT 3.19 X10'6 (4.70-6.10); RED CELL DISTRIBUTION WIDTH 13.8 % (11.5-14.5)
[2021-07-22 06:00] VITALS: BP 104/59
[2021-07-22 06:00] LABS: WHITE BLOOD COUNT 30.6 X10'3 (4.5-11.0)
--- NOTE | 2021-07-22 06:03 | NUR ---
Called Dr. Ramirez re: high WBC. stated that it is "not surprising."
[2021-07-22 06:09] LABS: ALANINE AMINOTRANSFERASE 12 U/L (12-78); ALBUMIN 2.3 G/DL (3.4-5.0); ALBUMIN/GLOBULIN RATIO 0.6 (1.1-1.5); ALKALINE PHOSPHATASE 69 IU/L (46-116); ANION GAP 9 (8-16); ASPARTATE AMINO TRANSFERASE 16 U/L (10-37); BILIRUBIN,TOTAL 0.7 MG/DL (0.1-1.0); BLOOD UREA NITROGEN 32 MG/DL (7-18); BUN/CREATININE RATIO 27.6 (5.4-32.0); CALCIUM 8.2 MG/DL (8.5-10.1); CHLORIDE 106 MMOL/L (99-107); CREATININE 1.16 MG/DL (0.60-1.10); GLUCOSE 106 MG/DL (70-104); MAGNESIUM 1.9 MG/DL (1.5-2.4); POTASSIUM 4.6 MMOL/L (3.5-5.1); SODIUM 139 MMOL/L (135-145); TOTAL CARBON DIOXIDE 23.6 MMOL/L (24-32); eGFR 61 ML/MIN
[2021-07-22 06:14] LABS: ANISOCYTOSIS 1+; PLATELET ESTIMATE NORMAL; TOTAL CELLS COUNTED 100
[2021-07-22 06:15] LABS: POLYCHROMASIA FEW
--- NOTE | 2021-07-22 06:18 | NUR ---
Problems reprioritized. Patient report given, questions answered & plan of care reviewed with Haydee.
[2021-07-22] MEDS: JUVEN Smoothie Arginine/Glut./Ca2+Bmb (Juven 19.3pkt) 240ml cup PO SCH ×2 (07:30→18:01)
[2021-07-22] MEDS: sennosides/docusate sodium tablet PO SCH ×2 (07:48→20:14)
[2021-07-22] MEDS: aspirin 325mg tablet, delayed-release (Ecotrin) PO SCH (07:48)
[2021-07-22] MEDS: pantoprazole 40mg Tablet.DR PO SCH (07:48)
[2021-07-22] MEDS: metoprolol tartrate 12.5mg (1/2 tablet) PO SCH ×2 (07:49→20:00)
[2021-07-22] MEDS: magnesium Cl slow-release 64mg tablet PO SCH ×2 (07:49→20:14)
[2021-07-22] MEDS: potassium Cl 20 mEq SR tablet PO SCH ×2 (07:50→20:14)
[2021-07-22] MEDS: acetaminophen 325mg tablet PO PRN (07:54)
[2021-07-22 11:00] VITALS: BP 93/37
--- NOTE | 2021-07-22 13:22 | NUR ---
Reinaldo Louis was informed of BP 81/41(49), states not to worry about it.
[2021-07-22 15:00] VITALS: BP 86/50
[2021-07-22] MEDS ORDERED: albumin (Human) 5% 250ml 250 ML IV ONE (15:25)
--- NOTE | 2021-07-22 15:55 | NUR ---
David Louis on unit. Order placed for Alubumin 250ml 5% IV to address low BP and states to hold metoprolol dose tonight
[2021-07-22 18:00] VITALS: BP 100/51
--- NOTE | 2021-07-22 18:09 | NUR ---
Patient in room PCU 3009. I have received report from CHAZ TREVINO and had the opportunity to ask questions and assume patient care.
--- NOTE | 2021-07-22 18:21 | NUR ---
Problems reprioritized. Patient report given, questions answered & plan of care reviewed with Juju TREVINO.
[2021-07-22 22:00] VITALS: BP 104/52
[2021-07-23 02:00] VITALS: BP 91/50
[2021-07-23 06:00] VITALS: BP 108/57
[2021-07-23 06:31] LABS: BASOPHILS # (AUTO) 0.1 X10'3 (0-0.2); BASOPHILS % (AUTO) 0.4 % (0-1); EOSINOPHILS # (AUTO) 0.7 X10'3 (0-0.9); EOSINOPHILS % (AUTO) 4.2 % (0-6); HEMATOCRIT 27.2 % (42.0-52.0); LYMPHOCYTES # (AUTO) 0.6 X10'3 (1.1-4.8); LYMPHOCYTES % (AUTO) 3.4 % (21-51); MEAN CORPUSCULAR HEMOGLOBIN 30.7 PG (27.0-31.0); MEAN CORPUSCULAR HGB CONC 33.1 g/dL (33.0-36.5); MEAN CORPUSCULAR VOLUME 92.9 FL (78-98); MEAN PLATELET VOLUME 9.5 FL (7.4-10.4); MONOCYTES % (AUTO) 6.4 % (2-12); NEUTROPHILS % (AUTO) 85.6 % (42-75); PLATELET COUNT 331 X10'3 (140-440); RED BLOOD COUNT 2.92 X10'6 (4.70-6.10); RED CELL DISTRIBUTION WIDTH 13.6 % (11.5-14.5); WHITE BLOOD COUNT 16.4 X10'3 (4.5-11.0)
--- NOTE | 2021-07-23 06:33 | NUR ---
Patient in room PCU 3009. I have received report from VERONIQUE TREVINO and had the opportunity to ask questions and assume patient care.
--- NOTE | 2021-07-23 06:36 | NUR ---
Problems reprioritized. Patient report given, questions answered & plan of care reviewed with Mohit TREVINO.
[2021-07-23 07:08] LABS: ALANINE AMINOTRANSFERASE 9 U/L (12-78); ALBUMIN 2.3 G/DL (3.4-5.0); ALBUMIN/GLOBULIN RATIO 0.6 (1.1-1.5); ALKALINE PHOSPHATASE 66 IU/L (46-116); ANION GAP 12 (8-16); ASPARTATE AMINO TRANSFERASE 15 U/L (10-37); BILIRUBIN,TOTAL 0.6 MG/DL (0.1-1.0); BLOOD UREA NITROGEN 29 MG/DL (7-18); CALCIUM 8.5 MG/DL (8.5-10.1); CHLORIDE 105 MMOL/L (99-107); GLUCOSE 104 MG/DL (70-104); MAGNESIUM 2.1 MG/DL (1.5-2.4); POTASSIUM 4.2 MMOL/L (3.5-5.1); SODIUM 140 MMOL/L (135-145); TOTAL CARBON DIOXIDE 23.1 MMOL/L (24-32); TOTAL PROTEIN 5.9 G/DL (6.4-8.2); eGFR 72 ML/MIN
[2021-07-23] MEDS: magnesium Cl slow-release 64mg tablet PO SCH ×2 (07:55→19:59)
[2021-07-23] MEDS: pantoprazole 40mg Tablet.DR PO SCH (07:55)
[2021-07-23] MEDS: aspirin 325mg tablet, delayed-release (Ecotrin) PO SCH (07:55)
[2021-07-23] MEDS: potassium Cl 20 mEq SR tablet PO SCH ×2 (07:55→19:59)
[2021-07-23] MEDS: sennosides/docusate sodium tablet PO SCH ×2 (07:55→19:53)
[2021-07-23] MEDS: metoprolol tartrate 12.5mg (1/2 tablet) PO SCH ×2 (07:56→19:57)
[2021-07-23] MEDS: JUVEN Smoothie Arginine/Glut./Ca2+Bmb (Juven 19.3pkt) 240ml cup PO SCH ×2 (07:56→10:28)
[2021-07-23 11:00] VITALS: BP 92/52
[2021-07-23 15:00] VITALS: BP 123/62
[2021-07-23 18:00] VITALS: BP 107/62
--- NOTE | 2021-07-23 18:09 | NUR ---
Problems reprioritized. Patient report given, questions answered & plan of care reviewed with Prabha Mills .
--- NOTE | 2021-07-23 18:30 | NUR ---
Patient in room PCU 3009. I have received report from Mohan TREVINO and had the opportunity to ask questions and assume patient care.
[2021-07-23 22:00] VITALS: BP 91/53
[2021-07-24 02:00] VITALS: BP 99/61
[2021-07-24 06:10] LABS: BASOPHILS % (AUTO) 0.3 % (0-1); EOSINOPHILS # (AUTO) 0.5 X10'3 (0-0.9); EOSINOPHILS % (AUTO) 3.9 % (0-6); HEMATOCRIT 25.1 % (42.0-52.0); HEMOGLOBIN 8.6 g/dl (14.0-17.9); LYMPHOCYTES # (AUTO) 0.5 X10'3 (1.1-4.8); MEAN CORPUSCULAR HEMOGLOBIN 31.2 PG (27.0-31.0); MEAN CORPUSCULAR HGB CONC 34.1 g/dL (33.0-36.5); MEAN CORPUSCULAR VOLUME 91.5 FL (78-98); MEAN PLATELET VOLUME 9.6 FL (7.4-10.4); MONOCYTES % (AUTO) 7.7 % (2-12); NEUTROPHILS # (AUTO) 11.3 X10'3 (1.8-7.7); NEUTROPHILS % (AUTO) 84.1 % (42-75); PLATELET COUNT 346 X10'3 (140-440); RED BLOOD COUNT 2.74 X10'6 (4.70-6.10); RED CELL DISTRIBUTION WIDTH 13.7 % (11.5-14.5); WHITE BLOOD COUNT 13.4 X10'3 (4.5-11.0)
[2021-07-24 06:38] LABS: ALANINE AMINOTRANSFERASE 13 U/L (12-78); ALBUMIN 2.2 G/DL (3.4-5.0); ALBUMIN/GLOBULIN RATIO 0.6 (1.1-1.5); ALKALINE PHOSPHATASE 64 IU/L (46-116); ANION GAP 9 (8-16); ASPARTATE AMINO TRANSFERASE 17 U/L (10-37); BILIRUBIN,TOTAL 0.6 MG/DL (0.1-1.0); BLOOD UREA NITROGEN 18 MG/DL (7-18); BUN/CREATININE RATIO 18.8 (5.4-32.0); CALCIUM 8.2 MG/DL (8.5-10.1); CHLORIDE 106 MMOL/L (99-107); CREATININE 0.96 MG/DL (0.60-1.10); GLUCOSE 113 MG/DL (70-104); MAGNESIUM 1.9 MG/DL (1.5-2.4); POTASSIUM 3.6 MMOL/L (3.5-5.1); SODIUM 142 MMOL/L (135-145); TOTAL CARBON DIOXIDE 27.2 MMOL/L (24-32); eGFR 76 ML/MIN
--- NOTE | 2021-07-24 06:42 | NUR ---
Problems reprioritized. Patient report given, questions answered & plan of care reviewed with Anna TREVINO.
--- NOTE | 2021-07-24 06:45 | NUR ---
Patient in room [facility] 3009. I have received report from NURA TREVINO and had the opportunity to ask questions and assume patient care. Addendum: 07/24/21 at 0647 by Anna Carvajal RN Patient in room [facility] 3009. I have received report from IVON TREVINO and had the opportunity to ask questions and assume patient care.
--- NOTE | 2021-07-24 06:55 | NUR ---
Telephone call from [facility] Dr. Lira reports chest xray this AM found small left pnuemothorax measuring approx. 3 mm. Reinaldo Burton notified via telephone.
[2021-07-24 07:00] VITALS: BP 114/65
[2021-07-24] MEDS: JUVEN Smoothie Arginine/Glut./Ca2+Bmb (Juven 19.3pkt) 240ml cup PO SCH (07:30)
[2021-07-24] MEDS: magnesium Cl slow-release 64mg tablet PO SCH (08:49)
[2021-07-24] MEDS: sennosides/docusate sodium tablet PO SCH (08:50)
[2021-07-24] MEDS: potassium Cl 20 mEq SR tablet PO SCH (08:50)
[2021-07-24] MEDS: pantoprazole 40mg Tablet.DR PO SCH (08:51)
[2021-07-24] MEDS: aspirin 325mg tablet, delayed-release (Ecotrin) PO SCH (08:51)
[2021-07-24] MEDS: metoprolol tartrate 12.5mg (1/2 tablet) PO SCH (08:51)
[2021-07-24 09:50] VITALS: BP 110/49
--- NOTE | 2021-07-24 09:53 | NUR ---
Pt fell in room unwitnessed. Found down on back, states he hit his left hip and right side of posterior head. No swelling or bleeding, patient states he is "fine". Alerted GENESIS Pryor who says he will come see the patient in a couple hours, and not to discharge patient until he sees him.
--- NOTE | 2021-07-24 13:22 | NUR ---
Reassessment: Pt continues w/ similar PO intake, avg 50% meals since 07/22 on Heart Healthy diet and 75% of Alhaji Smoothies since 07/22. LBM 07/23 receiving routine Senna. No change to nutrition intervention at this time, will continue to monitor. Recs: 1. Continue Heart Healthy diet as tolerated 2. Alhaji smoothie BID BD 3. Bowel care per rx 4. Weekly wts Addendum: 07/24/21 at [address] Amended: Links added.
--- NOTE | 2021-07-24 13:57 | NUR ---
Pt stable for discharge per md order, all discharge instructions reviewed with patient and all questions and answered. New prescriptions faxed to pharmacy. PIV discontinued, cannula intact. Telemetry discontinued, telemetry rn notified. All belongings collected and sent with patient. Pt picked up in private vehicle by family member, wheeled to lobby by staff.
== END 2021-07-24 13:23 | disposition home health service (06) | DRG 235 ==
LOC: PAS IN 07:31 → ICU 2S 14:52 → PCU 3S 07-14 14:44
PROVIDERS: ADMIT Thoracic Surgery (Cardiothoracic Vascular Surgery); ATTEND Thoracic Surgery (Cardiothoracic Vascular Surgery)
PROC: 021109W Bypass Coronary Artery, Two Arteries from Aorta with Autologous Venous Tissue, Open Approach (ICD-10-PCS; 2021-07-11)
PROC: 06BP4ZZ Excision of Right Saphenous Vein, Percutaneous Endoscopic Approach (ICD-10-PCS; 2021-07-11)
PROC: 5A1221Z Performance of Cardiac Output, Continuous (ICD-10-PCS; 2021-07-11)
PROC: B24BZZ4 Ultrasonography of Heart with Aorta, Transesophageal (ICD-10-PCS; 2021-07-11)
PROC: 30233R1 Transfusion of Nonautologous Platelets into Peripheral Vein, Percutaneous Approach (ICD-10-PCS; 2021-07-11)
PROC: 02100Z9 Bypass Coronary Artery, One Artery from Left Internal Mammary, Open Approach (ICD-10-PCS; principal; 2021-07-11 10:12)
PROC: 30233N1 Transfusion of Nonautologous Red Blood Cells into Peripheral Vein, Percutaneous Approach (ICD-10-PCS; 2021-07-12)
PROC: 0W9B30Z Drainage of Left Pleural Cavity with Drainage Device, Percutaneous Approach (ICD-10-PCS; 2021-07-18)
PROC: 5A0935A Assistance with Respiratory Ventilation, Less than 24 Consecutive Hours, High Flow/Velocity Cannula (ICD-10-PCS; 2021-07-19)
PROC: 3E0L4GC Introduction of Other Therapeutic Substance into Pleural Cavity, Percutaneous Endoscopic Approach (ICD-10-PCS; 2021-07-21)
PROC: 0BBP4ZX Excision of Left Pleura, Percutaneous Endoscopic Approach, Diagnostic (ICD-10-PCS; 2021-07-21)
DX: I25.710 Atherosclerosis of autologous vein coronary artery bypass graft(s) with unstable angina pectoris (principal); N17.0 Acute kidney failure with tubular necrosis; D62 Acute posthemorrhagic anemia; J93.9 Pneumothorax, unspecified; J93.82 Other air leak; E11.9 Type 2 diabetes mellitus without complications; I95.9 Hypotension, unspecified; J98.2 Interstitial emphysema; R09.02 Hypoxemia; I10 Essential (primary) hypertension; I34.0 Nonrheumatic mitral (valve) insufficiency; J44.9 Chronic obstructive pulmonary disease, unspecified; I25.2 Old myocardial infarction; Z85.46 Personal history of malignant neoplasm of prostate; Z79.84 Long term (current) use of oral hypoglycemic drugs
CPT/HCPCS: 36415; 36430; 36600; 71045; 80048; 80053; 81003; 82330; 82435; 82803; 82947; 82948; 83036; 83735; 84100; 84132; 84295; 85007; 85018; 85025; 85027; 85347; 85384; 85610; 85730; 86885; 86900; 86901; 86920; 87081; 88304; 88305; 93005; 93312; 93325; 93880; 93971; 94002; 94003; 94010; 94668; 94760; 97110; 97116; 97161; 97530; A4215; A4618; A6250; A6258; A6449; A7000; A7048; C1751; C1758; C9113; C9399; G0378; J0171; J0690; J1100; J1170; J1644; J1815; J1940; J2001; J2060; J2250; J2405; J2704; J2720; J3010; J3370; J3475; J3480; J3490; J7030; J7040; J7050; J7060; J7120; P9016; P9035; P9045; U0003; U0005

== ENCOUNTER → 2021-08-01 | Outpatient (CLI) | payer MEDICARE, OTHER ==
[~2021-08-01] MED LIST changes: +ASPI-1071 PO; -CLOP75TA15 PO; -DOCUMENT DATE & TIME OF BETA-BLOCKER PO ONE; +HYDR-3972 PO; -LISI20TA28 PO; -LORazepam 2 mg/ml vial IV ONE; -METO-395 PO; +METO25TA6 PO; -NITR0.4T51 SL; -ceFAZolin 2gm in dextrose, iso 50 ML IV ONE; -famotidine 20mg tablet PO ONE; -gabapentin 400mg capsule PO ONE; -ipratropium/albuterol 3ml nebule IH ONE; -ringers solution, lacted 1,000 ML IV SCH; -vancomycin 1,500 MG in NS 300ml IV soln IV ONE
== END | disposition home or self-care (01) ==
LOC: RAD 10:16
PROVIDERS: ATTEND Thoracic Surgery (Cardiothoracic Vascular Surgery)
DX: J95.811 Postprocedural pneumothorax (principal)
CPT/HCPCS: 71046

== ENCOUNTER 2021-08-08 10:15 | Outpatient (CLI) | payer MEDICARE, OTHER | END 2021-08-08 23:59 | disposition home or self-care (01) | LOC: RAD 10:15 | PROVIDERS: ATTEND Thoracic Surgery (Cardiothoracic Vascular Surgery) | DX: J43.9 Emphysema, unspecified (principal); J84.10 Pulmonary fibrosis, unspecified | CPT/HCPCS: 71046 ==

== ENCOUNTER 2022-11-30 09:57 | Inpatient (IN) | payer MEDICARE, OTHER ==
[2022-11-30] VITALS (13 sets, daily range): BP systolic 107–164; BP diastolic 49–94
[~2022-11-30] VITALS: Ht 175.3 cm; Wt 76.0 kg
[2022-11-30] MEDS ORDERED: normal saline 1000ML IV soln IVB ONE (11:25)
--- NOTE | 2022-11-30 11:45 | NUR ---
Lab at bedside
--- NOTE | 2022-11-30 12:05 | NUR ---
Son left and will return when pt is d/c home. Son took pts wallet and phone.
[2022-11-30 12:29] LABS: BASOPHILS % (AUTO) 0.2 % (0-1); EOSINOPHILS % (AUTO) 0.1 % (0-6); HEMATOCRIT 47.8 % (42.0-52.0); HEMOGLOBIN 16.4 g/dl (14.0-17.9); LYMPHOCYTES # (AUTO) 0.7 X10'3 (1.1-4.8); LYMPHOCYTES % (AUTO) 3.5 % (21-51); MEAN CORPUSCULAR HEMOGLOBIN 31.2 PG (27.0-31.0); MEAN CORPUSCULAR HGB CONC 34.2 g/dL (33.0-36.5); MEAN CORPUSCULAR VOLUME 91.2 FL (78-98); MEAN PLATELET VOLUME 8.8 FL (7.4-10.4); MONOCYTES # (AUTO) 0.9 X10'3 (0-0.9); MONOCYTES % (AUTO) 4.4 % (2-12); NEUTROPHILS # (AUTO) 19.1 X10'3 (1.8-7.7); NEUTROPHILS % (AUTO) 91.8 % (42-75); PLATELET COUNT 283 X10'3 (140-440); RED BLOOD COUNT 5.24 X10'6 (4.70-6.10); RED CELL DISTRIBUTION WIDTH 13.9 % (11.5-14.5); WHITE BLOOD COUNT 20.8 X10'3 (4.5-11.0)
[2022-11-30 12:30] LABS: CLARITY,URINE CLEAR (Clear); COLOR,URINE YELLOW (Yellow); GLUCOSE, URINE NEGATIVE (Neg); KETONES,URINE NEGATIVE (Neg); LEUKOCYTE ESTERASE ,URINE NEGATIVE (Neg); NITRITES, URINE NEGATIVE (Neg); OCCULT BLOOD,URINE TRACE-INTACT (Neg); PROTEIN,URINE 30 mg/dl (Neg); UROBILINOGEN,URINE 0.2 E.U/dL (0.2-1.0)
[2022-11-30 12:35] LABS: UA COLLECTION TYPE VOIDED
[2022-11-30 12:37] LABS: BACTERIA,URINE NONE SEEN /HPF (Neg); MUCUS STRANDS FEW /LPF (Neg); RBC,URINE 0-2 /HPF (0-2); SQUAMOUS EPITHELIAL CELL,UR FEW /LPF (FEW); WBC,URINE 0-4 /HPF (0-4)
[2022-11-30 12:48] LABS: ALANINE AMINOTRANSFERASE 11 U/L (12-78); ALBUMIN 4.2 G/DL (3.4-5.0); ALBUMIN/GLOBULIN RATIO 0.9 (1.1-1.5); ALKALINE PHOSPHATASE 120 IU/L (46-116); ANION GAP 11 (8-16); ASPARTATE AMINO TRANSFERASE 23 U/L (10-37); BILIRUBIN,TOTAL 0.7 MG/DL (0.1-1.0); BLOOD UREA NITROGEN 18 MG/DL (7-18); BUN/CREATININE RATIO 17.3 (10.0-20.0); CALCIUM 10.1 MG/DL (8.5-10.1); CHLORIDE 96 MMOL/L (99-107); CREATININE 1.04 MG/DL (0.60-1.10); GLUCOSE 121 MG/DL (70-104); POTASSIUM 4.3 MMOL/L (3.5-5.1); SODIUM 134 MMOL/L (135-145); TOTAL CARBON DIOXIDE 26.6 MMOL/L (24-32); TOTAL PROTEIN 8.9 G/DL (6.4-8.2); eGFR 69 ML/MIN
[2022-11-30] MEDS ORDERED: iohexol 300mg/ml 100ml inj. ONE (12:57)
[2022-11-30 13:34] LABS: APTT 26 SECONDS (22-32)
[2022-11-30] MEDS ORDERED: piperacillin/tazo 3.375gm/50ml 50 ML IV ONE (14:00)
--- NOTE | 2022-11-30 14:01 | NUR ---
Pt moved to ER11 report given to Jerod TREVINO. Pts son is back at bedside, Pts has his phone. VSS upon transfer.
[2022-11-30] MEDS ORDERED: BUDE10.2 IH (14:29)
[2022-11-30] MEDS ORDERED: CLOP75TA34 PO (14:29)
[2022-11-30] MEDS ORDERED: morphine 2 MG/ML inj. syringe IV PRN ×3 (16:30→21:10)
[2022-11-30] MEDS: dextrose 5%-1/2 normal saline 1,000 ML IV SCH ×2 (16:30→23:29)
[2022-11-30] MEDS ORDERED: acetaminophen 325mg tablet PO PRN ×2 (16:30)
[2022-11-30] MEDS ORDERED: magnesium hydroxide 30ml (MOM) UD suspension PO PRN (16:30)
[2022-11-30] MEDS ORDERED: HYDROcodone/acetaminophen 5mg/325mg tablet PO PRN (16:30)
[2022-11-30] MEDS ORDERED: mag hydrox/Alum hydrox/simeth 30ml oral suspension PO PRN (16:30)
[2022-11-30] MEDS ORDERED: metoclopramide 5 mg/ml inj IV PRN (16:30)
[2022-11-30] MEDS ORDERED: non-formulary drug (Budesonide/Formoterol Fumarate (Symbicort 160-4.5 Mcg Inhaler) 1 PUFF) IH PRN (16:35)
[2022-11-30] MEDS ORDERED: [UNRECOGNIZED DRUG - REMARK] (17:10)
[2022-11-30] MEDS ORDERED: glycopyrrolate 0.2mg/ml inj ONE (19:46)
[2022-11-30] MEDS ORDERED: sevoflurane 250ml liquid IH ONE (19:46)
[2022-11-30] MEDS ORDERED: fentaNYL /PF 50mcg/ml 5ml ampule ONE (19:48)
[2022-11-30] MEDS ORDERED: rocuronium 10mg/ml inj IV ONE (19:48)
[2022-11-30] MEDS ORDERED: propofol inj 20 ML IV ONE (19:49)
[2022-11-30] MEDS ORDERED: ceFOXitin 1000 MG inj ONE ×2 (20:19)
[2022-11-30] MEDS ORDERED: ePHEDrine 50MG/ML INJ. ONE (20:19)
[2022-11-30] MEDS: budesonide 0.5mg/2ml UD nebule IH SCH (20:23)
[2022-11-30] MEDS: albuterol 2.5 MG/3 ML nebule NEB SCH ×2 (20:23→21:20)
[2022-11-30] MEDS ORDERED: neostigmine methylsulfate 1 MG/ML 10ml vial ONE (20:44)
--- NOTE | 2022-11-30 20:58 | NUR ---
Received from OR via , accompanied by Anesthesiologist ROMANA AND OR NURSE and report given by Anesthesiolgist. PT IS DROWSY YET FOLLOWS VERBAL COMMANDS. CONTINUES TO GRAB O2 FACEMASK AND REMOVES. RESTLESS. C/O PAIN; PAIN MED GIVEN. CARRIE IS PATENT. RT NARE NG TUBE TO LOW CONT SUCTION. VSS WITH ST Addendum: 11/30/22 at 2153 by Haylee Menchaca RN Amended: Links added.
[2022-11-30] MEDS ORDERED: meperidine/PF 25mg/ml syringe IV PRN ×3 (21:10)
[2022-11-30] MEDS ORDERED: ondansetron/PF 4mg/2ml inj IV PRN (21:10)
[2022-11-30] MEDS ORDERED: ringers solution, lacted 1,000 ML IV SCH (21:10)
[2022-11-30] MEDS ORDERED: morphine 4 MG/ML inj SYRINge IV PRN (21:10)
[2022-11-30] MEDS ORDERED: proCHLORperazine 10 MG/2 ml inj IV PRN (21:10)
[2022-11-30] MEDS ORDERED: ipratropium/albuterol 3ml nebule IH PRN (21:15)
--- NOTE | 2022-11-30 22:00 | NUR ---
Received report from Gene May from recovery room. Received pt via bed to room 246A, pt drowsy, but arousable. Oriented to room and routine. n/g to lcs. Addendum: 11/30/22 at 2222 by Janna Diaz RN Amended: Links added.
--- NOTE | 2022-11-30 22:08 | NUR ---
PATIENT HAS MET ALL CRITERIA FOR TRANSFER TO THE SURGICAL FLOOR. VSS. DRESSINGS INTACT. BED LOW, CALL LIGHT PRESENT AND 2 RAILS UP. RN PRESENT TO ACCEPT CARE OF PATIENT AND REPORT HAS BEEN CALLED. ALL QUESTIONS ANSWERED TO ACCEPTING RN. Addendum: 11/30/22 at 2212 by Haylee Menchaca RN Amended: Links added.
[2022-11-30] MEDS: docusate sod 100mg capsule PO SCH (22:41)
[2022-12-01] MEDS: ondansetron/PF 4mg/2ml inj IV PRN ×2 (00:30→21:23)
[2022-12-01 00:55] VITALS: BP 119/57
--- NOTE | 2022-12-01 01:28 | NUR ---
nausea and indigestion gone. some pain. Addendum: 12/01/22 at 0128 by Janna Diaz RN Amended: Links added.
[2022-12-01 01:55] VITALS: BP 131/69
[2022-12-01] MEDS ORDERED: morphine 4 MG/ML inj SYRINge IV PRN (01:55)
[2022-12-01] MEDS ORDERED: morphine 2 MG/ML inj. syringe IV ONE (01:55)
[2022-12-01] MEDS ORDERED: HYDROmorphone inj. 0.5 MG/0.5 ML DISP.SYRIN IV PRN (01:55)
[2022-12-01] MEDS: albuterol 2.5 MG/3 ML nebule NEB SCH ×4 (02:20→20:47)
--- NOTE | 2022-12-01 04:55 | NUR ---
Pt dangled, sat at edge of bed, stood for several minutes and took two steps. back to bed poc with pillows. Addendum: 12/01/22 at 0515 by Janna Diaz RN Amended: Links added.
--- NOTE | 2022-12-01 06:38 | NUR ---
Problems reprioritized. Patient report given, questions answered & plan of care reviewed with BELINDA Her. Addendum: 12/01/22 at 0638 by Janna Diaz RN Amended: Links added.
[2022-12-01 06:55] LABS: BASOPHILS % (AUTO) 0 % (0-1); EOSINOPHILS % (AUTO) 0 % (0-6); HEMATOCRIT 42.5 % (42.0-52.0); HEMOGLOBIN 14.3 g/dl (14.0-17.9); LYMPHOCYTES # (AUTO) 0.3 X10'3 (1.1-4.8); LYMPHOCYTES % (AUTO) 1.3 % (21-51); MEAN CORPUSCULAR HEMOGLOBIN 31.1 PG (27.0-31.0); MEAN CORPUSCULAR HGB CONC 33.7 g/dL (33.0-36.5); MEAN CORPUSCULAR VOLUME 92.4 FL (78-98); MEAN PLATELET VOLUME 8.9 FL (7.4-10.4); MONOCYTES # (AUTO) 1.1 X10'3 (0-0.9); MONOCYTES % (AUTO) 5.2 % (2-12); NEUTROPHILS # (AUTO) 20.4 X10'3 (1.8-7.7); NEUTROPHILS % (AUTO) 93.5 % (42-75); PLATELET COUNT 255 X10'3 (140-440); RED CELL DISTRIBUTION WIDTH 14.1 % (11.5-14.5); WHITE BLOOD COUNT 21.8 X10'3 (4.5-11.0)
[2022-12-01 07:01] LABS: ALBUMIN 3.1 G/DL (3.4-5.0); ANION GAP 13 (8-16); BLOOD UREA NITROGEN 21 MG/DL (7-18); BUN/CREATININE RATIO 17.2 (10.0-20.0); CALCIUM 8.9 MG/DL (8.5-10.1); CHLORIDE 100 MMOL/L (99-107); CREATININE 1.22 MG/DL (0.60-1.10); GLUCOSE 169 MG/DL (70-104); POTASSIUM 3.8 MMOL/L (3.5-5.1); SODIUM 134 MMOL/L (135-145); TOTAL CARBON DIOXIDE 20.9 MMOL/L (24-32); eGFR 57 ML/MIN
[2022-12-01 07:22] VITALS: BP 99/55
[2022-12-01 07:50] LABS: PLATELET ESTIMATE NORMAL; TOTAL CELLS COUNTED 100
[2022-12-01] MEDS: budesonide 0.5mg/2ml UD nebule IH SCH ×2 (08:01→20:47)
[2022-12-01] MEDS: docusate sod 100mg capsule PO SCH ×2 (08:47→19:53)
[2022-12-01] MEDS: enoxaparin 40mg/0.4ml syringe SUBCUT SCH (08:48)
[2022-12-01 11:08] VITALS: BP 97/50
[2022-12-01] MEDS: dextrose 5%-1/2 normal saline 1,000 ML IV SCH (11:32)
[2022-12-01] MEDS: hydrocortisone sod succ/PF 100mg/2ml inj. IV SCH (16:32)
[2022-12-01 18:00] VITALS: BP 139/73
--- NOTE | 2022-12-01 18:30 | NUR ---
Problems reprioritized. Patient report given, questions answered & plan of care reviewed with Lynda TREVINO.
[2022-12-01 22:00] VITALS: BP 137/63
[2022-12-02] MEDS: hydrocortisone sod succ/PF 100mg/2ml inj. IV SCH ×3 (00:06→18:24)
[2022-12-02] MEDS: dextrose 5%-1/2 normal saline 1,000 ML IV SCH ×2 (01:06→08:30)
[2022-12-02] MEDS: albuterol 2.5 MG/3 ML nebule NEB SCH ×3 (02:25→20:19)
[2022-12-02 06:23] LABS: ALBUMIN 2.9 G/DL (3.4-5.0); ANION GAP 9 (8-16); BLOOD UREA NITROGEN 28 MG/DL (7-18); BUN/CREATININE RATIO 26.4 (10.0-20.0); CALCIUM 9.2 MG/DL (8.5-10.1); CHLORIDE 99 MMOL/L (99-107); CREATININE 1.06 MG/DL (0.60-1.10); GLUCOSE 125 MG/DL (70-104); POTASSIUM 3.9 MMOL/L (3.5-5.1); SODIUM 135 MMOL/L (135-145); TOTAL CARBON DIOXIDE 26.8 MMOL/L (24-32); eGFR 67 ML/MIN
--- NOTE | 2022-12-02 06:26 | NUR ---
Problems reprioritized. Patient report given, questions answered & plan of care reviewed with BELINDA Her.
--- NOTE | 2022-12-02 06:31 | NUR ---
Patient in room [facility]IA[facility] 346. I have received report from SURENDRA TREVINO and had the opportunity to ask questions and assume patient care.
[2022-12-02 06:33] LABS: BASOPHILS % (AUTO) 0 % (0-1); EOSINOPHILS % (AUTO) 0.1 % (0-6); HEMATOCRIT 38.1 % (42.0-52.0); HEMOGLOBIN 13.1 g/dl (14.0-17.9); LYMPHOCYTES # (AUTO) 0.6 X10'3 (1.1-4.8); LYMPHOCYTES % (AUTO) 3.8 % (21-51); MEAN CORPUSCULAR HEMOGLOBIN 31.1 PG (27.0-31.0); MEAN CORPUSCULAR HGB CONC 34.3 g/dL (33.0-36.5); MEAN CORPUSCULAR VOLUME 90.8 FL (78-98); MEAN PLATELET VOLUME 8.8 FL (7.4-10.4); MONOCYTES # (AUTO) 0.9 X10'3 (0-0.9); MONOCYTES % (AUTO) 5.7 % (2-12); NEUTROPHILS # (AUTO) 14.9 X10'3 (1.8-7.7); NEUTROPHILS % (AUTO) 90.4 % (42-75); PLATELET COUNT 241 X10'3 (140-440); RED CELL DISTRIBUTION WIDTH 13.6 % (11.5-14.5); WHITE BLOOD COUNT 16.5 X10'3 (4.5-11.0)
[2022-12-02 06:37] VITALS: BP 121/63
[2022-12-02] MEDS: docusate sod 100mg capsule PO SCH ×2 (08:13→19:40)
[2022-12-02] MEDS: ondansetron/PF 4mg/2ml inj IV PRN (08:20)
[2022-12-02] MEDS: enoxaparin 40mg/0.4ml syringe SUBCUT SCH (08:24)
[2022-12-02] MEDS: budesonide 0.5mg/2ml UD nebule IH SCH ×2 (09:00→20:19)
[2022-12-02 11:00] VITALS: BP 127/69
[2022-12-02 18:00] VITALS: BP 131/64
--- NOTE | 2022-12-02 18:48 | NUR ---
Problems reprioritized. Patient report given, questions answered & plan of care reviewed with Faye TREVINO.
--- NOTE | 2022-12-02 21:43 | NUR ---
bladder scan showed >190ml.
[2022-12-02 22:00] VITALS: BP 129/79
[2022-12-03] MEDS: hydrocortisone sod succ/PF 100mg/2ml inj. IV SCH ×4 (01:07→23:55)
[2022-12-03] MEDS: dextrose 5%-1/2 normal saline 1,000 ML IV SCH ×3 (01:07→16:09)
[2022-12-03] MEDS: albuterol 2.5 MG/3 ML nebule NEB SCH ×4 (02:54→20:40)
[2022-12-03 04:32] LABS: BASOPHILS % (AUTO) 0 % (0-1); EOSINOPHILS % (AUTO) 0 % (0-6); HEMOGLOBIN 11.8 g/dl (14.0-17.9); LYMPHOCYTES # (AUTO) 0.6 X10'3 (1.1-4.8); LYMPHOCYTES % (AUTO) 4.9 % (21-51); MEAN CORPUSCULAR HEMOGLOBIN 30.8 PG (27.0-31.0); MEAN CORPUSCULAR HGB CONC 33.9 g/dL (33.0-36.5); MEAN CORPUSCULAR VOLUME 90.9 FL (78-98); MONOCYTES # (AUTO) 0.9 X10'3 (0-0.9); MONOCYTES % (AUTO) 8.3 % (2-12); NEUTROPHILS # (AUTO) 9.8 X10'3 (1.8-7.7); NEUTROPHILS % (AUTO) 86.8 % (42-75); PLATELET COUNT 242 X10'3 (140-440); RED BLOOD COUNT 3.85 X10'6 (4.70-6.10); RED CELL DISTRIBUTION WIDTH 13.8 % (11.5-14.5); WHITE BLOOD COUNT 11.3 X10'3 (4.5-11.0)
[2022-12-03 04:42] LABS: ALBUMIN 2.7 G/DL (3.4-5.0); ANION GAP 6 (8-16); BLOOD UREA NITROGEN 29 MG/DL (7-18); BUN/CREATININE RATIO 26.6 (10.0-20.0); CALCIUM 8.9 MG/DL (8.5-10.1); CHLORIDE 101 MMOL/L (99-107); CREATININE 1.09 MG/DL (0.60-1.10); GLUCOSE 131 MG/DL (70-104); POTASSIUM 3.3 MMOL/L (3.5-5.1); SODIUM 137 MMOL/L (135-145); TOTAL CARBON DIOXIDE 30.2 MMOL/L (24-32); eGFR 65 ML/MIN
--- NOTE | 2022-12-03 06:14 | NUR ---
Problems reprioritized. Patient report given, questions answered & plan of care reviewed with jerrod Her.
--- NOTE | 2022-12-03 06:30 | NUR ---
Patient in room DIANA 346. I have received report from Faye TREVINO and had the opportunity to ask questions and assume patient care.
[2022-12-03 07:11] VITALS: BP 103/59
[2022-12-03] MEDS: budesonide 0.5mg/2ml UD nebule IH SCH ×2 (07:15→20:40)
[2022-12-03] MEDS: enoxaparin 40mg/0.4ml syringe SUBCUT SCH (07:56)
[2022-12-03] MEDS: docusate sod 100mg capsule PO SCH ×2 (08:00→19:53)
[2022-12-03 09:54] VITALS: BP 120/60
--- NOTE | 2022-12-03 10:44 | NUR ---
PAGER ID: [phone] MESSAGE: Arden surg 1865 re: 346a YessyCelsa patient family brought in his "cancer med" is it okay if we start him on his current schedule that he is following for dosing at this time? Addendum: 12/03/22 at 1443 by Armando Mcmanus RN returned call with orders
[2022-12-03] MEDS ORDERED: magnesium 2GM in 50ml NS 50 ML IV PRN (11:05)
[2022-12-03] MEDS ORDERED: magnesium 4gm in 100ml NS 100 ML IV PRN (11:05)
[2022-12-03] MEDS ORDERED: magnesium Cl slow-release 64mg tablet PO PRN (11:05)
[2022-12-03] MEDS ORDERED: potassium Cl 20 mEq SR tablet PO PRN ×2 (11:05)
[2022-12-03] MEDS ORDERED: potassium Cl 40MEQ/1/2NS 520ml 520 ML IV PRN (11:05)
[2022-12-03] MEDS ORDERED: POTASSIUM BICARB 20meq eff tab 20 MEQ TABLET.EFF PO PRN (11:11)
[2022-12-03] MEDS: POTASSIUM BICARB 20meq eff tab 20 MEQ TABLET.EFF PO PRN (11:24)
[2022-12-03] MEDS: ENZALUTAMIDE 40 MG PO SCH (11:27)
--- NOTE | 2022-12-03 14:27 | NUR ---
PAGER ID: [phone] MESSAGE: Arden Surg [id number] re:346a hemsted, We DC'd the tele yesterday but I must have entered the order wrong and didn't select DC. Did you still want him off tele at this time? Thanks. Addendum: 12/03/22 at 1443 by Armando Mcmanus RN returned call with orders at this time
--- NOTE | 2022-12-03 18:10 | NUR ---
Problems reprioritized. Patient report given, questions answered & plan of care reviewed with Khanh TREVINO.
[2022-12-03 18:50] VITALS: BP 142/81
[2022-12-03] MEDS: K and/or MAG REPLACEMENT MC SCH (20:00)
[2022-12-03 22:00] VITALS: BP 119/52
[2022-12-04] MEDS: potassium CL 20mEq in D5-1/2NS 1,000 ML IV SCH ×2 (00:11→13:00)
[2022-12-04] MEDS: albuterol 2.5 MG/3 ML nebule NEB SCH ×4 (02:54→20:35)
--- NOTE | 2022-12-04 06:00 | NUR ---
received report from Charge Nurse and Khanh TREVINO. Patient currently in bed with HOB at 45 degrees. All safety measures in place and call light in reach.Will continue to monitor.
[2022-12-04 06:07] VITALS: BP 108/61
--- NOTE | 2022-12-04 06:46 | NUR ---
Problems reprioritized. Patient report given, questions answered & plan of care reviewed with Amy. Addendum: 12/04/22 at 0646 by Elbert Taveras RN Amended: Links added.
[2022-12-04] MEDS: hydrocortisone sod succ/PF 100mg/2ml inj. IV SCH ×2 (07:05→16:25)
[2022-12-04 07:39] LABS: BASOPHILS % (AUTO) 0 % (0-1); EOSINOPHILS % (AUTO) 0 % (0-6); HEMATOCRIT 32.3 % (42.0-52.0); LYMPHOCYTES # (AUTO) 0.7 X10'3 (1.1-4.8); LYMPHOCYTES % (AUTO) 7.8 % (21-51); MEAN CORPUSCULAR HEMOGLOBIN 31.1 PG (27.0-31.0); MEAN CORPUSCULAR HGB CONC 33.9 g/dL (33.0-36.5); MEAN CORPUSCULAR VOLUME 91.7 FL (78-98); MEAN PLATELET VOLUME 9.1 FL (7.4-10.4); MONOCYTES # (AUTO) 0.8 X10'3 (0-0.9); MONOCYTES % (AUTO) 9.2 % (2-12); NEUTROPHILS # (AUTO) 7.1 X10'3 (1.8-7.7); PLATELET COUNT 226 X10'3 (140-440); RED BLOOD COUNT 3.53 X10'6 (4.70-6.10); RED CELL DISTRIBUTION WIDTH 13.5 % (11.5-14.5); WHITE BLOOD COUNT 8.6 X10'3 (4.5-11.0)
[2022-12-04] MEDS: K and/or MAG REPLACEMENT MC SCH ×2 (08:00→20:00)
[2022-12-04] MEDS: docusate sod 100mg capsule PO SCH ×2 (08:00→20:18)
[2022-12-04 08:02] LABS: ALBUMIN 2.4 G/DL (3.4-5.0); ANION GAP 4 (8-16); BLOOD UREA NITROGEN 28 MG/DL (7-18); CALCIUM 8.4 MG/DL (8.5-10.1); CHLORIDE 104 MMOL/L (99-107); GLUCOSE 131 MG/DL (70-104); MAGNESIUM 2.3 MG/DL (1.5-2.4); SODIUM 139 MMOL/L (135-145); TOTAL CARBON DIOXIDE 31.4 MMOL/L (24-32); eGFR 72 ML/MIN
[2022-12-04] MEDS: budesonide 0.5mg/2ml UD nebule IH SCH ×2 (08:08→20:34)
[2022-12-04] MEDS: enoxaparin 40mg/0.4ml syringe SUBCUT SCH (08:20)
[2022-12-04 08:22] LABS: POTASSIUM 2.9 MMOL/L (3.5-5.1)
[2022-12-04] MEDS ORDERED: potassium Cl 40MEQ/1/2NS 520ml 520 ML IV ONE ×2 (08:42→12:42)
[2022-12-04] MEDS ORDERED: potassium Cl 40MEQ/1/2NS 520ml 520 ML IV SCH (08:45)
[2022-12-04 10:29] VITALS: BP 126/68
[2022-12-04 11:05] VITALS: BP 129/76
--- NOTE | 2022-12-04 13:28 | NUR ---
patient has passed gas MD notified. Orders to DC NG tube given over phone. NG tube removed no bleeding or resistance during removal. Patient is to upgrade to a full liquid diet as tolerated. Currently having no c/o of abd discomfort or gagging as complained of before. Bowel sounds active in all four quadrants. Walked with nursing staff 300 ft. Ind with transfers. bilateral weakness in knees. SOB on exertion. Continues on 4L NC. All safety measures in place and call light in reach. Will continue to monitor.
--- NOTE | 2022-12-04 17:00 | NUR ---
I have reviewed and agree with interventions, assessments and documentation by Amy Dalton LVN.
[2022-12-04 18:00] VITALS: BP 140/75
--- NOTE | 2022-12-04 18:15 | NUR ---
Patient in room [facility]. I have received report from REVA Longoria and had the opportunity to ask questions and assume patient care.
[2022-12-04 22:00] VITALS: BP 123/63
[2022-12-05] MEDS: hydrocortisone sod succ/PF 100mg/2ml inj. IV SCH
[2022-12-05] MEDS: potassium CL 20mEq in D5-1/2NS 1,000 ML IV SCH (02:20)
[2022-12-05] MEDS: albuterol 2.5 MG/3 ML nebule NEB SCH ×2 (02:58→08:17)
[2022-12-05 06:00] VITALS: BP 124/68
--- NOTE | 2022-12-05 06:30 | NUR ---
Patient in room [facility] 346. I have received report from BELINDA Castillo and had the opportunity to ask questions and assume patient care.
--- NOTE | 2022-12-05 06:32 | NUR ---
Problems reprioritized. Patient report given, questions answered & plan of care reviewed with RVEA Garcia.
[2022-12-05 06:37] VITALS: BP 124/68
[2022-12-05 07:04] LABS: BASOPHILS % (AUTO) 0.1 % (0-1); EOSINOPHILS % (AUTO) 0.4 % (0-6); HEMATOCRIT 29.9 % (42.0-52.0); HEMOGLOBIN 10.2 g/dl (14.0-17.9); LYMPHOCYTES # (AUTO) 1.6 X10'3 (1.1-4.8); LYMPHOCYTES % (AUTO) 20.4 % (21-51); MEAN CORPUSCULAR HEMOGLOBIN 31.5 PG (27.0-31.0); MEAN CORPUSCULAR HGB CONC 34.3 g/dL (33.0-36.5); MEAN CORPUSCULAR VOLUME 91.9 FL (78-98); MEAN PLATELET VOLUME 8.5 FL (7.4-10.4); MONOCYTES # (AUTO) 0.9 X10'3 (0-0.9); MONOCYTES % (AUTO) 11.2 % (2-12); NEUTROPHILS # (AUTO) 5.5 X10'3 (1.8-7.7); NEUTROPHILS % (AUTO) 67.9 % (42-75); PLATELET COUNT 205 X10'3 (140-440); RED BLOOD COUNT 3.25 X10'6 (4.70-6.10); RED CELL DISTRIBUTION WIDTH 13.7 % (11.5-14.5)
[2022-12-05 07:07] LABS: ALBUMIN 2.1 G/DL (3.4-5.0); ANION GAP 7 (8-16); BLOOD UREA NITROGEN 27 MG/DL (7-18); CALCIUM 8.2 MG/DL (8.5-10.1); CHLORIDE 109 MMOL/L (99-107); CREATININE 0.87 MG/DL (0.60-1.10); GLUCOSE 90 MG/DL (70-104); POTASSIUM 3.1 MMOL/L (3.5-5.1); SODIUM 143 MMOL/L (135-145); eGFR 84 ML/MIN
[2022-12-05] MEDS: ENZALUTAMIDE 40 MG PO SCH (07:59)
[2022-12-05] MEDS: docusate sod 100mg capsule PO SCH (07:59)
[2022-12-05] MEDS: enoxaparin 40mg/0.4ml syringe SUBCUT SCH (08:00)
[2022-12-05] MEDS: K and/or MAG REPLACEMENT MC SCH (08:02)
[2022-12-05 08:55] LABS: PLATELET ESTIMATE NORMAL; TOTAL CELLS COUNTED 100
[2022-12-05] MEDS ORDERED: predniSONE 20 mg tablet PO SCH (09:35)
[2022-12-05] MEDS ORDERED: PRED20TA PO (09:43)
[2022-12-05] MEDS ORDERED: IPRA3AMP9 IH (10:38)
--- NOTE | 2022-12-05 10:54 | NUR ---
O2 Sat at rest on room air:_90__% If below 89%: Recovery O2 Sat at rest on ___LPM:___%:___% via (mask/nasal cannula, etc..) No further documentation is necessary. If O2 Sat did not drop below 89% on room air,ambulate patient on room air. O2 Sat while ambulating on room air:_80__% Recovery O2 Sat while ambulating on __4L _LPM:_90__% No further documentation is necessary. If patient does not drop below 89% while ambulating, he/she does not qualify for home O2.
--- NOTE | 2022-12-05 10:54 | NUR ---
PAGER ID: [phone] MESSAGE: Yessy, Luisa Alexsander. Patient requiring 4L of O2 when ambulating, 2L while in bed. Continue with DC? Thank you, Radha [phone]. Addendum: 12/05/22 at 1252 by Radha HALEN Got OK to discharge from hospitalist and surgeon.
[2022-12-05 11:00] VITALS: BP 137/62
[2022-12-05] MEDS: POTASSIUM BICARB 20meq eff tab 20 MEQ TABLET.EFF PO PRN (12:02)
--- NOTE | 2022-12-05 14:30 | NUR ---
I have reviewed and agree with interventions, assessments and documentation by Radha Villasenor LVN.
--- NOTE | 2022-12-05 15:20 | NUR ---
Patient stable and appropriate for discharge. [facility] Patient given home medications back from the pharmacy. New medications escripted to [facility] in [place]. Patient found to have cigarettes in a belongings bag in his chart. Educated patient on the danger of smoking with home O2. Advised patient to quit smoking. Discharge instructions given to patient. All questions answered. IV removed cannula intact. Patient wheeled down to lobby by auxillary and taken home via private vehicle with family.
[2022-12-06] MEDS ORDERED: predniSONE 20 mg tablet PO SCH (08:00)
== END 2022-12-05 15:15 | disposition home health service (06) | DRG 356 ==
LOC: ER 09:58 → ED HOLD 16:29 → SUR 3N 22:00
PROVIDERS: ADMIT Internal Medicine; ATTEND Internal Medicine
PROC: BW211ZZ Computerized Tomography (CT Scan) of Abdomen and Pelvis using Low Osmolar Contrast (ICD-10-PCS; 2022-11-30)
PROC: 0D9670Z Drainage of Stomach with Drainage Device, Via Natural or Artificial Opening (ICD-10-PCS; 2022-11-30)
PROC: 0DJD0ZZ Inspection of Lower Intestinal Tract, Open Approach (ICD-10-PCS; principal; 2022-11-30 19:46)
DX: K56.2 Volvulus (principal); E43 Unspecified severe protein-calorie malnutrition; J96.00 Acute respiratory failure, unspecified whether with hypoxia or hypercapnia; R65.11 Systemic inflammatory response syndrome (SIRS) of non-infectious origin with acute organ dysfunction; K91.89 Other postprocedural complications and disorders of digestive system; E87.20 Acidosis, unspecified; J98.11 Atelectasis; N17.9 Acute kidney failure, unspecified; K50.90 Crohn's disease, unspecified, without complications; K56.7 Ileus, unspecified; E86.0 Dehydration; E87.6 Hypokalemia; F17.210 Nicotine dependence, cigarettes, uncomplicated; I73.9 Peripheral vascular disease, unspecified; I71.9 Aortic aneurysm of unspecified site, without rupture; I25.10 Atherosclerotic heart disease of native coronary artery without angina pectoris; J43.9 Emphysema, unspecified; K80.20 Calculus of gallbladder without cholecystitis without obstruction; Z79.02 Long term (current) use of antithrombotics/antiplatelets; I25.2 Old myocardial infarction; Z95.1 Presence of aortocoronary bypass graft; Z88.8 Allergy status to other drugs, medicaments and biological substances; Z79.899 Other long term (current) drug therapy; Z68.24 Body mass index [BMI] 24.0-24.9, adult
CPT/HCPCS: 36415; 71045; 74177; 80048; 80053; 81001; 83605; 83735; 83880; 84132; 84145; 85007; 85025; 85610; 85730; 87040; 87081; 93005; 94640; 94760; 96361; 96365; 97110; 97116; 97161; 97530; 99285; A4615; A4618; A6258; A7000; C1758; G0378; J0694; J1650; J1720; J2175; J2270; J2405; J2543; J2704; J2710; J2765; J3010; J3480; J3490; J7030; J7120; J7512; Q9967